=== PATIENT | female | born 1930 | race Caucasian/White ===

== ENCOUNTER 2016-12-26 09:10 | Emergency (ER) | payer MEDICARE, BC ==
[~2016-12-26] VITALS: Ht 152.4 cm; Wt 51.0 kg
[2016-12-26 09:16] VITALS: BP 133/62; PULSE 80; RESP 16; TEMP 99.4; O2SAT 100
[2016-12-26] MEDS ORDERED: OMEP20TA PO (09:36)
[2016-12-26] MEDS ORDERED: LOSA100T PO (09:36)
[2016-12-26] MEDS ORDERED: ARIC10TA2 PO (09:36)
[2016-12-26] MEDS ORDERED: ACET500T13 PO (09:36)
[2016-12-26] MEDS ORDERED: VITA250C3 CHEW (09:36)
[2016-12-26] MEDS ORDERED: ATOR40TA16 PO (09:36)
[2016-12-26] MEDS ORDERED: CALCTAB19 PO (09:36)
[2016-12-26] MEDS ORDERED: METF500T PO (09:36)
[2016-12-26] MEDS ORDERED: DOCU1CAP21 PO (09:36)
[2016-12-26] MEDS ORDERED: CRANCAP2 PO (09:36)
--- NOTE | 2016-12-26 09:36 | PD ---
HPI . Right hip pain Chief Complaint: Fall Time Seen by Provider: 09:26 Travel History International Travel<30 days: No Contact w/Intl Traveler<30days: No Traveled to known affect area: No History of Present Illness HPI The patient presents to us following a trip and fall at an assisted living facility presentation. She did strike her head. She had no loss of consciousness. She has not had any symptoms of a head injury such as altered mental status, blurred vision, vomiting. She takes an aspirin a day but no anticoagulants. Her chief complaint is actually right hip pain. Patient reports a previous fracture in the right hip status post pinning. She is able to walk on her hip with some pain. The pain is rated at 10/10. She has also been noted to have contusions to her left elbow and left hand. She has not complained of pain in these locations. [facility] Social History Tobacco Use: No Allergies-Medications (Allergen,Severity, Reaction): Coded Allergies: Sulfa (Verified Allergy, Unknown, 12/26/16) Reported Meds & Prescriptions Reported Meds & Active Scripts Active Reported APAP Extra Strength (Acetaminophen) 500 Mg Tab 500 Mg PO Q4-6H PRN Colace Clear (Docusate Sodium) 50 Mg Cap 50 Mg PO DAILY Vitamin C (Ascorbic Acid) 250 Mg Chew 500 Mg CHEW BID Omeprazole 20 Mg Tab 20 Mg PO DAILY Metformin (Metformin HCl) 500 Mg Tab 500 Mg PO BIDPC With meals Losartan (Losartan Potassium) 100 Mg Tab 100 Mg PO DAILY Aricept (Donepezil HCl) 10 Mg Tablet 10 Mg PO HS Cranberry Urinary Comfort (Vitamins C & E) 1 Cap 1 Cap PO DAILY Calcium 600+D 200 (Calcium Carbonate-Vitamin D) 600-200 Mg-Unit Tab 1 Tab PO DAILY Atorvastatin (Atorvastatin Calcium) 40 Mg Tab 40 Mg PO HS Review of Systems Except as stated in HPI: all other systems reviewed are Neg Eyes: No: Blurred Vision HENT: No: Headaches, Vertigo, Lightheadedness Gastrointestinal: No: Nausea Musculoskeletal: Positive: Arthralgias Skin: Positive Lumps, Positive Change in Pigmentation (bruising) Physical Exam Narrative GENERAL: Awake and alert and in no acute distress. SKIN: Warm and dry. HEAD: 2 palpable contusions in her scalp. EYES: Pupils equal and round. Extraocular movements are intact. NECK: Trachea midline. Neck is nontender. Full range of motion without pain. CARDIOVASCULAR: Regular rate and rhythm. RESPIRATORY: No accessory muscle use. MUSCULOSKELETAL: Hematoma on the left elbow. She is able to completely extend the left elbow and does not have significant pain. She also has a contusion on her left hand. She has no pain with use of her hand. She is tender over the right greater trochanter and resists logrolling of her right hip. There is no shortening or malrotation. She is distally neurovascularly intact. NEUROLOGICAL: Awake and alert. No obvious cranial nerve deficits. Motor grossly within normal limits. Normal speech. PSYCHIATRIC: Appropriate mood and affect; insight and judgment normal. Data Data Last Documented VS Vital Signs Date Time Temp Pulse Resp B/P Pulse Ox O2 Delivery O2 Flow Rate FiO2 12/26/16 10:15 68 16 150/67 98 Room Air 12/26/16 09:[address] Brain W/O Iv Contrast(Rout) (12/26/16 09:26) Elbow, Complete (4 Vws) (12/26/16 09:26) Hand, Complete ([id number]) (12/26/16 09:26) Hip, Uni(Ap&Lat) W Ap Pelvis (12/26/16 09:26) MDM Medical Decision Making Medical Screen Exam Complete: Yes Emergency Medical Condition: Yes Differential Diagnosis My differential diagnosis of head trauma includes but is not limited to scalp contusion, concussion, intracerebral hemorrhage. Differential diagnosis of extremity trauma includes but is not limited to fracture, sprain or strain, dislocation, contusion Narrative Course Patient presents for evaluation of injury sustained in a fall. I have ordered a CT of her head and plain films of her left elbow, left hand and right hip. I don't suspect that I will find anything wrong with her head on the left elbow or left hand. However, she may have sustained a right hip injury. Last Impressions Hip and Pelvis X-Ray 12/26/16925 Signed Impressions: Service Date/Time: Monday, December 26, 2016 10:02 - CONCLUSION: 1. Remote fracture right femoral neck with residual foreshortening. No acute fractures identified. Elroy Arrington MD Head CT 12/26/16925 Signed Impressions: Service Date/Time: Monday, December 26, 2016 09:36 - CONCLUSION: Negative for acute process. Nathan Porter MD FACR Hand X-Ray 12/26/16925 Signed Impressions: Service Date/Time: Monday, December 26, 2016 09:46 - CONCLUSION: 1. Remote fractures at the left wrist and hand as above. Moderate osteoarthritis. Osteopenia. No acute fracture identified. Elroy Arrington MD Elbow X-Ray 12/26/16925 Signed Impressions: Service Date/Time: Monday, December 26, 2016 09:55 - CONCLUSION: 1. No acute fracture identified. Osteopenia. Mild degenerative change at the left elbow. Elroy Arrington MD The plain films were all independently viewed by me. This patient has no evidence of an acute significant injury. Emergency Department evaluation reveals no emergency medical condition. The patient is stable for discharge to home. Diagnosis Primary Impression: Fall Qualified Code: W19.XXXA - Fall, initial encounter Additional Impressions: Scalp contusion Left elbow contusion Contusion of left hand Qualified Code: S60.222A - Contusion of left hand, initial encounter Right hip pain Patient Instructions: Contusion in Adults (DC), General Instructions Disposition: 01 DISCHARGE HOME Condition: Stable Namrata Ventura MD Dec 26, 2016 09:36
--- NOTE | 2016-12-26 10:02 | RADRPT ---
EXAM DATE/TIME: 12/26/2016 09:36 [facility] COMPARISON: No previous studies available for comparison. INDICATIONS : Trauma. Fell and hit head. RADIATION DOSE: 60.25 CTDIvol (mGy) MEDICAL HISTORY : None SURGICAL HISTORY : None. ENCOUNTER: Initial ACUITY: 1 day PAIN SCALE: 0/10 LOCATION: cranial TECHNIQUE: Multiple contiguous axial images were obtained of the head. Using automated exposure control and adj ustment of the mA and/or kV according to patient size, radiation dose was kept as low as reasonably a chievable to obtain optimal diagnostic quality images. DICOM format image data is available electro nically for review and comparison. FINDINGS: CEREBRUM: The ventricles are normal for age. No evidence of midline shift, mass lesion, hemorrhage or acute in farction. No extra-axial fluid collections are seen. POSTERIOR FOSSA: The cerebellum and brainstem are intact. The 4th ventricle is midline. The cerebellopontine angle i s unremarkable. EXTRACRANIAL: The visualized portion of the orbits is intact. SKULL: The calvaria is intact. No evidence of skull fracture. CONCLUSION: Negative for acute process. Nathan Porter MD FACR on December 26, 2016 at 9:53 Board Certified Radiologist. This report was verified electronically.
[2016-12-26 10:15] VITALS: BP 150/67; PULSE 68; RESP 16; O2SAT 98
--- NOTE | 2016-12-26 10:41 | RADRPT ---
EXAM DATE/TIME: 12/26/2016 09:46 [facility] COMPARISON: No previous studies available for comparison. INDICATIONS : Left hand pain after fall. MEDICAL HISTORY : None. SURGICAL HISTORY : None. ENCOUNTER: Initial ACUITY: 1 day PAIN SCORE: 6/10 LOCATION: Left posterior hand FINDINGS: There is a remote healed fracture of the distal radius with foreshortening. Remote ulnar styloid frac ture also noted. There is also an old distal fifth metacarpal fracture with healing. Bones are diffus maurisio osteopenic. No acute fracture or dislocation is identified. There is moderate osteoarthritis of t he left wrist. CONCLUSION: 1. Remote fractures at the left wrist and hand as above. Moderate osteoarthritis. Osteopenia. No acut e fracture identified. Elroy Arrington MD on December 26, 2016 at 10:36 Board Certified Radiologist. This report was verified electronically.
--- NOTE | 2016-12-26 10:42 | RADRPT ---
EXAM DATE/TIME: 12/26/2016 09:55 [facility] COMPARISON: No previous studies available for comparison. INDICATIONS : Left elbow pain after fall MEDICAL HISTORY : None. SURGICAL HISTORY : None. ENCOUNTER: Initial ACUITY: 1 day PAIN SCORE: 0/10 LOCATION: Left posterior elbow FINDINGS: Multiple view examination of the left elbow demonstrates no soft tissue swelling, joint effusion, or fracture. The osseous structures are in normal alignment. Bony mineralization is decreased. CONCLUSION: 1. No acute fracture identified. Osteopenia. Mild degenerative change at the left elbow. Elroy Arrington MD on December 26, 2016 at 10:38 Board Certified Radiologist. This report was verified electronically.
--- NOTE | 2016-12-26 10:43 | RADRPT ---
EXAM DATE/TIME: 12/26/2016 10:02 [facility] COMPARISON: No previous studies available for comparison. INDICATIONS : Right hip pain after fall MEDICAL HISTORY : None. SURGICAL HISTORY : Appendectomy. Hysterectomy. Right hip hardware placement ENCOUNTER: Initial ACUITY: 1 day PAIN SCORE: 10/10 LOCATION: Right hip FINDINGS: There is a remote femoral neck fracture status post triple lag screw fixation. There is some foreshor tening. No new fractures identified. There is mild osteoarthritis of the hips. Bones are diffusely os teopenic. CONCLUSION: 1. Remote fracture right femoral neck with residual foreshortening. No acute fractures identified. Elroy Arrington MD on December 26, 2016 at 10:40 Board Certified Radiologist. This report was verified electronically.
== END 2016-12-26 11:16 | disposition home or self-care (01) ==
LOC: PHED 09:10
DX: S00.03XA Contusion of scalp, initial encounter (principal); S50.02XA Contusion of left elbow, initial encounter; S60.222A Contusion of left hand, initial encounter; M25.551 Pain in right hip; W01.0XXA Fall on same level from slipping, tripping and stumbling without subsequent striking against object, initial encounter; Y92.129 Unspecified place in nursing home as the place of occurrence of the external cause
CPT/HCPCS: 70450; 73080; 73130; 73502

== ENCOUNTER 2016-12-30 15:22 | Inpatient (IN) | payer MEDICARE, BC ==
[~2016-12-30] VITALS: Ht 152.4 cm; Wt 45.7 kg
[~2016-12-30 15:22] MED LIST: ACET500T13 PO; ARIC10TA2 PO; ATOR40TA16 PO; CALCTAB19 PO; CRANCAP2 PO; DOCU1CAP21 PO; LOSA100T PO; METF500T PO; OMEP20TA PO; VITA250C3 CHEW
[2016-12-30 15:33] VITALS: BP 107/46; PULSE 96; RESP 18; TEMP 98.2; O2SAT 98
--- NOTE | 2016-12-30 15:42 | PD ---
HPI Chief Complaint: VOMITING Time Seen by Provider: 15:42 Travel History International Travel<30 days: No Contact w/Intl Traveler<30days: No History of Present Illness HPI 86-year-old female with a history of hypertension, hyperlipidemia, diabetes, dementia is brought to the emergency department by EMS from versus a living facility for evaluation of left flank pain, nausea and vomiting that began shortly after lunch. Per EMS report the patient was alert and oriented 4 and vomiting mostly saliva. She was given Zofran on route. The patient is a poor historian and when I ask her questions her answer is frequently "I don't know." She is awake, alert and oriented to person and place. She is unsure of the time or the situation. No other complaints. PFSH Past Medical History High Cholesterol: Yes Diabetes: Yes Diminished Hearing: Yes Hypertension: Yes Past Surgical History Appendectomy: Yes Cholecystectomy: Yes Hysterectomy: Yes Tonsillectomy: Yes Social History Alcohol Use: No Tobacco Use: No Substance Use: No Allergies-Medications (Allergen,Severity, Reaction): Coded Allergies: Sulfa (Verified Allergy, Unknown, 12/30/16) Reported Meds & Prescriptions Reported Meds & Active Scripts Active Reported Nitrofurantoin Monohydrate Macrocrystals (Nitrofurantoin Monoh/Nitrofur Macro) 100 Mg Cap 100 Mg PO BID Sm Gas Relief (Simethicone) 80 Mg Chw 80 Mg CHEW QID PRN Eye Health Adult 50+ Softgel (Antiox #11/Om3/Dha/Epa/Lut/Colby) 1 Each Capsule 1 Cap PO DAILY C 500 (Ascorbic Acid) 500 Mg Tab 500 Mg PO BID Methenamine Hippurate 1 Gm Tab 500 Mg PO BID Cranberry (Cranberry (Vaccinium Macrocarpon)) 500 Mg Cap 500 Mg PO DAILY Aspirin EC (Aspirin) 81 Mg Tabdr 81 Mg PO HS APAP Extra Strength (Acetaminophen) 500 Mg Tab 500 Mg PO Q6HR PRN Colace Clear (Docusate Sodium) 50 Mg Cap 50 Mg PO DAILY PRN Omeprazole 20 Mg Tab 20 Mg PO DAILY Losartan (Losartan Potassium) 100 Mg Tab 100 Mg PO DAILY Aricept (Donepezil HCl) 10 Mg Tablet 10 Mg PO HS Calcium 600+D 200 (Calcium Carbonate-Vitamin D) 600-200 Mg-Unit Tab 1 Tab PO DAILY Atorvastatin (Atorvastatin Calcium) 40 Mg Tab 40 Mg PO HS Review of Systems ROS Limitations: Altered Mental Status, Poor Historian Except as stated in HPI: all other systems reviewed are Neg Physical Exam Exam Limitations: Altered Mental Status, Poor Historian Narrative GENERAL: Well-nourished and well-developed female patient in no acute distress. SKIN: Warm and dry. HEAD: Normocephalic and atraumatic. EYES: No injection, drainage, or hyphema noted. PERRLA. EOMI. ENT: No nasal drainage noted. Oropharynx is clear. NECK: Supple and the trachea is midline. CARDIOVASCULAR: Regular rate and rhythm. RESPIRATORY: Breath sounds are equal bilaterally with no accessory muscle use, wheezing, rhonchi, or crackles. GASTROINTESTINAL: Abdomen is soft, non-tender, and nondistended. MUSCULOSKELETAL: No obvious deformities, swelling, cyanosis, or ecchymosis is present throughout the upper and lower extremities. Patient has full range of motion without any signs of neurovascular compromise. BACK: Left flank tenderness to palpation. NEUROLOGICAL: Awake, alert, and oriented to person and place. Unsure of time or situation. Normal speech and gait. Cranial nerves are grossly intact. Data Data Last Documented VS Vital Signs Date Time Temp Pulse Resp B/P Pulse Ox O2 Delivery O2 Flow Rate FiO2 12/30/16 17:54 88 18 113/48 94 Room Air 12/30/16 15:33 98.2 Orders Complete Blood Count With Diff (12/30/16 15:39) Comprehensive Metabolic Panel (12/30/16 15:39) Lipase (12/30/16 15:39) Prothrombin Time / Inr (Pt) (12/30/16 15:39) Act Partial Throm Time (Ptt) (12/30/16 15:39) Urinalysis - C+S If Indicated (12/30/16 15:39) Ct Abd/Pel W Iv Contrast(Rout) (12/30/16 15:39) Iv Access Insert/Monitor (12/30/16 15:39) Ecg Monitoring (12/30/16 15:39) Oximetry (12/30/16 15:39) Sodium Chloride 0.9% Flush (Ns Flush) (12/30/16 15:45) Sodium Chlorid 0.9% 500 Ml Inj (Ns 500 M (12/30/16 15:45) Chest, Single Ap (12/30/16 15:39) Ct Brain W/O Iv Contrast(Rout) (12/30/16 15:41) Lactic Acid Sepsis Protocol (12/30/16 15:44) Ondansetron Inj (Zofran Inj) (12/30/16 16:15) Urine Culture (12/30/16 16:27) Sodium Chlor 0.9% 1000 Ml Inj (Ns 1000 M (12/30/16 17:27) Piperacil-Tazo 4.5 Gm Premix (Zosyn 4.5 (12/30/16 17:30) Iohexol 350 Inj (Omnipaque 350 Inj) (12/30/16 18:17) Labs Laboratory Tests Test 12/30/16 12/30/16 12/30/16 16:15 16:27 18:33 White Blood Count 2.8 TH/MM3 Red Blood Count 3.97 MIL/MM3 Hemoglobin 10.2 GM/DL Hematocrit 31.5 % Mean Corpuscular Volume 79.3 FL Mean Corpuscular Hemoglobin 25.8 PG Mean Corpuscular Hemoglobin 32.6 % Concent Red Cell Distribution Width 15.0 % Platelet Count 262 TH/MM3 Mean Platelet Volume 8.2 FL Neutrophils (%) (Auto) % Lymphocytes (%) (Auto) % Monocytes (%) (Auto) % Eosinophils (%) (Auto) % Basophils (%) (Auto) % Neutrophils # (Auto) TH/MM3 Lymphocytes # (Auto) TH/MM3 Monocytes # (Auto) TH/MM3 Eosinophils # (Auto) TH/MM3 Basophils # (Auto) TH/MM3 CBC Comment AUTO DIFF Differential Total Cells 100 Counted Neutrophils % (Manual) 53 % Band Neutrophils % 41 % Lymphocytes % 5 % Eosinophils % 1 % Neutrophils # (Manual) 2.6 TH/MM3 Differential Comment FINAL DIFF MANUAL Dohle Bodies PRESENT Platelet Estimate NORMAL Platelet Morphology Comment NORMAL Ovalocytes 1+ Prothrombin Time 11.1 SEC Prothromb Time International 1.0 RATIO Ratio Activated Partial 22.9 SEC Thromboplast Time Sodium Level 135 MEQ/L Potassium Level 3.2 MEQ/L Chloride Level 99 MEQ/L Carbon Dioxide Level 23.4 MEQ/L Anion Gap 13 MEQ/L Blood Urea Nitrogen 14 MG/DL Creatinine 1.06 MG/DL Estimat Glomerular Filtration 49 ML/MIN Rate Random Glucose 180 MG/DL Lactic Acid Level 4.6 mmol/L 2.3 mmol/L Calcium Level 8.8 MG/DL Total Bilirubin 0.5 MG/DL Aspartate Amino Transf 12 U/L (AST/SGOT) Alanine Aminotransferase 20 U/L (ALT/SGPT) Alkaline Phosphatase 70 U/L Total Protein 6.9 GM/DL Albumin 3.5 GM/DL Lipase 327 U/L Urine Color YELLOW Urine Turbidity HAZY Urine pH 6.0 Urine Specific [place] 1.012 Urine Protein TRACE mg/dL Urine Glucose (UA) NEG mg/dL Urine Ketones NEG mg/dL Urine Occult Blood MOD Urine Nitrite NEG Urine Bilirubin NEG Urine Urobilinogen LESS THAN 2.0 MG/DL Urine Leukocyte Esterase LARGE Urine RBC 47 /hpf Urine WBC 77 /hpf Urine WBC Clumps OCC Urine Squamous Epithelial 1 /hpf Cells Urine Bacteria OCC /hpf Microscopic Urinalysis Comment CULTURE INDICATED MDM Medical Decision Making Medical Screen Exam Complete: Yes Emergency Medical Condition: Yes Differential Diagnosis Kidney stone versus diverticulitis versus colitis versus pancreatitis versus dehydration versus electrolyte abnormality versus intracranial hemorrhage Narrative Course 86-year-old female is brought to the emergency department from her assisted living facility for evaluation of nausea, vomiting and left flank pain. Patient is afebrile, she is tachycardic with a heart rate 96 bpm. Otherwise vital signs within normal limits. Abdominal examination is essentially benign with the exception of left flank tenderness. IV access is obtained, labs have been drawn and sent. Patient is placed on cardiac telemetry and pulse oximetry monitoring. CBC shows suppressed white blood count of 2.8, anemia with hemoglobin 10.2, hematocrit 31.5. 41% band neutrophils. CMP shows mild hypokalemia with potassium 3.2 and renal insufficiency with a creatinine of 1.06, GFR 49. Lactic acid is 4.6. 2 hour repeat lactic acid is 2.3. Coags are unremarkable. Chest x-ray is negative. Head CT is negative for any acute abnormalities. CT of the abdomen and pelvis is negative for any abnormalities. Patient was administered IV Zosyn empirically after seeing lactic acidosis. Patient will be admitted to medicine service for IV fluids and antibiotics for sepsis and urinary tract infection. I discussed the case with my attending physician Dr. Pope who is aware of the patients history, physical examination findings, and treatment plan. Physician Communication Physician Communication I spoke with Dr. Yusuf [facility] who agrees to admit the patient to her service. Diagnosis Primary Impression: Sepsis Qualified Code: A41.9 - Sepsis, due to unspecified organism Additional Impression: UTI (urinary tract infection) Qualified Code: N39.0 - Urinary tract infection with hematuria, site unspecified Admitting Information Admitting Physician Requests: Admit Shanda Graff Dec 30, 2016 15:42
[2016-12-30] MEDS ORDERED: SODIUM CHLORIDE 0.9% FLUSH 10 ML FLUSH IV FLUSH PRN ×2 (15:45→20:15)
[2016-12-30] MEDS ORDERED: SODIUM CHLORID 0.9% 500 ML INJ 500 ML IV ONE (15:45)
[2016-12-30 16:07] VITALS: O2SAT 100
[2016-12-30] MEDS ORDERED: ASPI81TA11 PO (16:15)
[2016-12-30] MEDS ORDERED: ONDANSETRON HCL 4 MG/2 ML VIAL IV PUSH ONE (16:15)
[2016-12-30] MEDS ORDERED: METH1TAB2 PO (16:21)
[2016-12-30] MEDS ORDERED: CRAN500C2 PO (16:21)
[2016-12-30] MEDS ORDERED: C 50TAB PO (16:26)
[2016-12-30] MEDS ORDERED: ANTI1CAP PO (16:26)
[2016-12-30] MEDS ORDERED: [UNRECOGNIZED DRUG - OTHER] CHEW (16:31)
[2016-12-30] MEDS ORDERED: NITR100C4 PO (16:32)
--- NOTE | 2016-12-30 16:48 | RADRPT ---
EXAM DATE/TIME: 12/30/2016 16:18 [facility] COMPARISON: No previous studies available for comparison. INDICATIONS : Chest and abdominal pain, vomiting, evaluate for free air, fell 3 days ago MEDICAL HISTORY : None. SURGICAL HISTORY : Appendectomy. Hysterectomy. hip replaced ENCOUNTER: Initial ACUITY: 3 days PAIN SCORE: Non-responsive. LOCATION: Bilateral chest FINDINGS: Diffuse interstitial prominence without significant focal pleural-parenchymal opacities. No significa nt pneumothorax. Cardiomediastinal contours are within normal limits. Left humeral resection. Bony th orax is otherwise intact. No gross free air. CONCLUSION: 1. No gross free air as questioned. 2. No acute cardiopulmonary disease. Bhavin Narvaez MD on December 30, 2016 at 16:44 Board Certified Radiologist. This report was verified electronically.
[2016-12-30 16:56] LABS: HEMATOCRIT 31.5 % (35.0-46.0); MEAN CELL VOLUME 79.3 FL (80.0-100.0); MEAN CORPUSCULAR HEMOGLOBIN 25.8 PG (27.0-34.0); MEAN CORPUSCULAR HGB CONC 32.6 % (32.0-36.0); PLATELET COUNT 262 TH/MM3 (150-450); RED BLOOD COUNT 3.97 MIL/MM3 (4.00-5.30); WHITE BLOOD COUNT 2.8 TH/MM3 (4.0-11.0)
[2016-12-30 17:06] LABS: APTT (PATIENT) 22.9 SEC (24.3-30.1); PROTHROMBIN TIME - PATIENT 11.1 SEC (9.8-11.6)
[2016-12-30 17:12] LABS: BACTERIA, URINE OCC /hpf; BLOOD, URINE MOD (NEG); COMMENT (UR) CULTURE INDICATED; CULTURE IF INDICATED CULTURE INDICATED; GLUCOSE,URINE NEG (NEG); KETONE, URINE NEG (NEG); NITRITE,URINE NEG (NEG); SQUAMOUS EPITHELIAL CELL URINE 1 /hpf (0-5); URINE COLOR YELLOW (YELLW/STRAW)
[2016-12-30 17:13] LABS: ALT (GPT) 20 U/L (10-53); ANION GAP 13 MEQ/L (5-15); AST (GOT) 12 U/L (15-37); BICARBONATE 23.4 MEQ/L (21.0-32.0); BLOOD UREA NITROGEN 14 MG/DL (7-18); CHLORIDE 99 MEQ/L (98-107); GLOMERULAR FILTRATION RATE 49 ML/MIN (>89); HEMO FLAGS AUTO DIFF; POTASSIUM 3.2 MEQ/L (3.5-5.1); SODIUM (NA) 135 MEQ/L (136-145)
[2016-12-30 17:15] LABS: ALKALINE PHOSPHATASE 70 U/L (45-117); TOTAL BILIRUBIN ADULT 0.5 MG/DL (0.2-1.0)
[2016-12-30] MEDS ORDERED: SODIUM CHLOR 0.9% 1000 ML INJ 1,000 ML IV SCH (17:27)
[2016-12-30] MEDS ORDERED: PIPERACIL-TAZO 4.5 GM PREMIX 100 ML IV ONE (17:30)
[2016-12-30 17:48] LABS: BANDS 41 % (0-6); EOSINOPHILS 1 % (0-4); NEUTROPHIL # MANUAL DIFF 2.6 TH/MM3 (1.8-7.7); POLYS (SEG NEUTROPHILS) 53 % (16-70); WBC DIFF SAMPLE 100
[2016-12-30 17:49] LABS: OVALOCYTES 1+ (NORMAL)
[2016-12-30 17:50] LABS: DOHLE BODIES PRESENT (NONE SEEN); PLATELET ESTIMATE SMEAR NORMAL (NORMAL); PLATELET MORPHOLOGY NORMAL (NORMAL); SCAN/DIFF FINAL DIFF MANUAL
[2016-12-30 17:54] VITALS: BP 113/48; PULSE 88; RESP 18; O2SAT 94
[2016-12-30] MEDS ORDERED: IOHEXOL 350 MG/ML 10 ML VIAL (for RAD DIAG) IV ONE (18:17)
--- NOTE | 2016-12-30 18:37 | RADRPT ---
EXAM DATE/TIME: 12/30/2016 18:07 [facility] COMPARISON: CT BRAIN W/O CONTRAST, December 26, 2016, 9:36. INDICATIONS : Altered mental status. RADIATION DOSE: 56.35 CTDIvol (mGy) MEDICAL HISTORY : Hypertension. SURGICAL HISTORY : Cholecystectomy. Appendectomy. Hysterectomy. ENCOUNTER: Initial ACUITY: 1 day PAIN SCALE: 0/10 LOCATION: Cranial TECHNIQUE: Multiple contiguous axial images were obtained of the head. Using automated exposure control and adjustment of the mA and/or kV according to patient size, radiation dose was kept as low as reasonably achievable to obtain optimal diagnostic quality images. DICOM format image data is av ailable electronically for review and comparison. FINDINGS: The ventricles and cortical sulci are widened. There is decreased density seen througho ut the periventricular white matter. There is evidence of prior infarction at the left anterior limb of the internal capsule. There are calcifications seen at the medial aspects of the basal ganglia bilat erally. No acute areas of hemorrhage or mass effect are seen. Extra-axial fluid collections are not seen. There are old lacunar infarcts seen at the right periventricular white matter. CONCLUSION: 1. No acute abnormality is seen. 2. Age related atrophy. 3. Suspected small vessel ischemic change throughout the white matter. 4. 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 Luis Chase MD on December 30, 2016 at 18:25 Board Certified Radiologist. This report was verified electronically.
[2016-12-30 18:44] LABS: LACTIC ACID GHOST NOT REPORTABLE
--- NOTE | 2016-12-30 19:19 | RADRPT ---
EXAM DATE/TIME: 12/30/2016 18:06 [facility] COMPARISON: HIP RIGHT (AP&LAT 2/3VWS) W AP PELVIS, December 26, 2016, 10:02. CHEST SINGLE AP, December 30, 2016, 16:18. INDICATIONS : Patient with nausea and vomiting. IV CONTRAST: 100 cc Omnipaque 350 (iohexol) IV ORAL CONTRAST: No oral contrast ingested. RADIATION DOSE: 9.96 CTDIvol (mGy) MEDICAL HISTORY : Hypertension. SURGICAL HISTORY : Appendectomy. Cholecystectomy. Hysterectomy. ENCOUNTER: Initial ACUITY: 1 day PAIN SCALE: 5/10 LOCATION: Left flank TECHNIQUE: Volumetric scanning of the abdomen and pelvis was performed. Using automated exposure control and ad justment of the mA and/or kV according to patient size, radiation dose was kept as low as reasonably achievable to obtain optimal diagnostic quality images. DICOM format image data is available electro [facility] for review and comparison. FINDINGS: The patient is status post cholecystectomy with clips in the right upper quadrant. There is some min imal prominence of the intrahepatic biliary ducts. The common bile duct is within normal limits. The mild dilatation of the intrahepatic biliary ducts may be secondary to a reservoir phenomenon followi ng cholecystectomy. Atherosclerotic calcifications are seen throughout the arterial system. There a re prominent calcifications seen at the michela hepatis region which may be related to a calcified hepa tic artery. The portal vein is patent. No focal hepatic lesions are seen. The spleen, pancreas, adrenal glands and kidneys are grossly normal. The bowel is unremarkable. The patient has surgical fasteners seen at the anterior abdominal wall. The patient appears to be statu s post hysterectomy. No pelvic mass is seen. The patient has a prominent levoscoliosis of the lumbar spine. There is degenerative change througho ut the lumbar spine. There are some compressive changes at the L1 vertebral body. The age of these changes is not known. There are three screws seen through the right proximal femur. There is increased density seen at the posterior lung bases likely related to atelectasis versus some mild underlying consolidation. CONCLUSION: 1. An acute abnormality is not clearly identified. 2. Atherosclerotic calcifications seen throughout the arterial system. An aneurysm is not seen. 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 The portal vein is patent. 3. Prominent levoscoliosis of the lumbar spine. In addition there is compression deformity identifie d at L1. The age of this deformity is not known. Luis Chase MD on December 30, 2016 at 18:58 Board Certified Radiologist. This report was verified electronically.
[2016-12-30] MEDS ORDERED: DEXTROSE 50% IN WATER 50 ML VIAL(D50) IV PRN (20:15)
[2016-12-30] MEDS ORDERED: GLUCAGON 1 MG/ML VIAL OTHER PRN (20:15)
[2016-12-30] MEDS ORDERED: NALOXONE HCL 0.4 MG/ML AMP IV PRN (20:15)
[2016-12-30] MEDS ORDERED: LEVOFLOXACIN 750 MG PREMIX INJ 150 ML IV SCH (21:00)
[2016-12-30] MEDS ORDERED: CHLORHEXIDINE GLUCONATE 2 % 1 PACK (2 CLOTHS) TOP PRN (21:30)
[2016-12-30] MEDS ORDERED: MISCELLANEOUS NURSING INFORMATION XX SCH (21:30)
[2016-12-30 22:00] VITALS: BP 132/63; PULSE 83; RESP 24; TEMP 99.8
[2016-12-30] MEDS: INSULIN ASPART SUPPLEMENTAL SCALE SQ SCH (22:05)
[2016-12-30] MEDS: SODIUM CHLORIDE 0.9% FLUSH 10 ML FLUSH IV FLUSH SCH (22:06)
[2016-12-31] VITALS (18 sets, daily range): BP systolic 88–131; BP diastolic 46–60; PULSE 68–90; RESP 15–34; TEMP 97.4–99.6; O2SAT 93–99
--- NOTE | 2016-12-31 00:44 | HHI.HP ---
[facility] Erasmo Clay MD Admission Diagnosis Sepsis, UTI, Bandemia Diagnoses: Chief Complaint: flank pain, nausea, and vomiting Travel History International Travel<30 Days: No Contact w/Intl Traveler <30 Da: No Traveled to Known Affected Are: No History of Present Illness Written by Joyce Villatoro, acting as scribe for Dr. Yusuf on 12/31/16 at 00:51. The patient reports a fall at home on Thursday that occurred while she was walking to the bathroom and ran into a chair. States she hit the back/top of the left side of her head. She says she came in on Thursday evening. States she was at [facility] in the [facility] when she fell (records indicate she is at [facility] in [place]). States able to walk with walker following fall. She was released from ER back to [facility]. She is unable to report why she returned to the hospital. She has dementia. Denies sob, unilateral weakness, n/v/d, reports gas only, unsure about black or red colored stool. Denies dysuria. Reports neck is painful following the fall. Unsure if she was having fevers. States "I didn't feel good" but is unable to describe this any further. ER documentation from Shanda Graff PA-C on 12/30/16 indicates that the patient was sent to the emergency room by the assisted living facility for evaluation of left flank pain, nausea, and vomiting that began after lunch. CT of abdomen and pelvis performed in the ED cannot clearly identify an acute abnormality. Lactic acid initially 4.6 and 2.3 on repeat. Review of Systems Except as stated in HPI: all other systems reviewed are Neg Past Family Social History Past Medical History Patient is a poor historian, the following is from [facility] documentation sent with the patient Diabetes Mellitus, type 2 Hypertension Hyperlipidemia GERD Dementia Right hip fracture Patient denies CAD, CHF, atrial fibrillation, COPD/asthma/emphysema - couldn't remember other diseases Past Surgical History Possible right hip fracture repair - per [facility] documentation . Reported Medications Reported Meds & Active Scripts Active Reported Nitrofurantoin Monohydrate Macrocrystals (Nitrofurantoin Monoh/Nitrofur Macro) 100 Mg Cap 100 Mg PO BID Sm Gas Relief (Simethicone) 80 Mg Chw 80 Mg CHEW QID PRN Eye Health Adult 50+ Softgel (Antiox #11/Om3/Dha/Epa/Lut/Colby) 1 Each Capsule 1 Cap PO DAILY C 500 (Ascorbic Acid) 500 Mg Tab 500 Mg PO BID Methenamine Hippurate 1 Gm Tab 500 Mg PO BID Cranberry (Cranberry (Vaccinium Macrocarpon)) 500 Mg Cap 500 Mg PO DAILY Aspirin EC (Aspirin) 81 Mg Tabdr 81 Mg PO HS APAP Extra Strength (Acetaminophen) 500 Mg Tab 500 Mg PO Q6HR PRN Colace Clear (Docusate Sodium) 50 Mg Cap 50 Mg PO DAILY PRN Omeprazole 20 Mg Tab 20 Mg PO DAILY Losartan (Losartan Potassium) 100 Mg Tab 100 Mg PO DAILY Aricept (Donepezil HCl) 10 Mg Tablet 10 Mg PO HS Calcium 600+D 200 (Calcium Carbonate-Vitamin D) 600-200 Mg-Unit Tab 1 Tab PO DAILY Atorvastatin (Atorvastatin Calcium) 40 Mg Tab 40 Mg PO HS . Allergies: Coded Allergies: Sulfa (Verified Allergy, Unknown, 12/30/16) Active Ordered Medications Current Medications Sodium Chloride 2 ml 2 ml UNSCH PRN IV FLUSH FLUSH AFTER USING IV ACCESS; Start 12/30/16 at 15:45; Stop 12/30/16 at 20:24; Status DC Sodium Chloride (NS 500 ml Inj) 500 ml @ 500 mls/hr ONCE ONCE IV Last administered on 12/30/16 16:04; Start 12/30/16 at 15:45; Stop 12/30/16 at 16:44 ; Status DC Ondansetron HCl 4 mg 4 mg ONCE ONCE IV PUSH Last administered on 12/30/16 16: 05; Start 12/30/16 at 16:15; Stop 12/30/16 at 16:16; Status DC Sodium Chloride 1,000 ml @ 1,000 mls/hr Q1H IV Last administered on 12/30/16 17:44; Start 12/30/16 at 17:27; Stop 12/30/16 at 18:26; Status DC Piperacillin Sod/ Tazobactam Sod (Zosyn 4.5 Gm Premix) 100 ml @ 200 mls/hr ONCE ONCE IV Last administered on 12/30/16 17:45; Start 12/30/16 at 17:30; Stop 12/30/16 at 17:59; Status DC Iohexol (Omnipaque 350 Inj) 100 ml STK-MED ONCE IV Last administered on 18:17; Start 12/30/16 at 18:17; Stop 12/30/16 at 18:18; Status DC Sodium Chloride (NS Flush) 2 ml UNSCH PRN IV FLUSH FLUSH AFTER USING IV ACCESS ; Start 12/30/16 at 20:15 Sodium Chloride (NS Flush) 2 ml BID IV FLUSH Last administered on 12/30/16 22: 06; Start 12/30/16 at 21:00 Naloxone HCl (Narcan Inj) 0.4 mg UNSCH PRN IV SEE LABEL COMMENTS; Start at 20:15 Dextrose (D50w (Vial) Inj) 50 ml UNSCH PRN IV HYPOGLYCEMIA-SEE COMMENTS; Start 12/30/16 at 20:15 Glucagon (Glucagon Inj) 1 mg UNSCH PRN OTHER HYPOGLYCEMIA-SEE COMMENTS; Start 12/30/16 at 20:15 Insulin Aspart 1 1 ACHS SLIDING SCALE SQ Last administered on 12/30/16 22:05 ; Start 12/30/16 at 21:00 Levofloxacin/ Dextrose (Levaquin 750 Mg Premix Inj) 150 ml @ 100 mls/hr Q24H IV Last administered on 12/30/16 21:16; Start 12/30/16 at 21:00 Miscellaneous Information 1 Q361D XX ; Start 12/30/16 at 21:30 Chlorhexidine Gluconate (Chlorhexidine 2% Cloth) 3 pack Taper DAILY@04 TOP ; Start 12/31/16 at 04:00; Stop 12/27/17 at 03:59 Chlorhexidine Gluconate (Chlorhexidine 2% Cloth) 3 pack UNSCH PRN TOP HYGIENIC CARE; Start 12/30/16 at 21:30 Family History Mother with diabetes mellitus . Social History Originally from [place]; moved to be closer to daughter who lives here Tobacco: denies Alcohol: denies . Physical Exam Vital Signs Vital Signs Date Time Temp Pulse Resp B/P Pulse Ox O2 Delivery O2 Flow Rate FiO2 12/30/16 22:00 99.8 83 24 132/63 6/27/17 22:00 83 12/30/16 17:54 88 18 113/48 94 Room Air 12/30/16 16:07 100 Room Air 12/30/16 16:05 18 12/30/16 15:33 98.2 96 18 107/46 98 Physical Exam GENERAL: This is an elderly female patient with some memory loss noted, in no apparent distress. SKIN: No rashes, ecchymoses or lesions. Cool and dry. Appears pale. HEAD: Atraumatic. Normocephalic. EYES: No scleral icterus. No injection or drainage. ENT: Nose without bleeding, purulent drainage. NECK: Trachea midline. No JVD or lymphadenopathy. CARDIOVASCULAR: Regular rate and rhythm without murmurs, gallops, or rubs. RESPIRATORY: Clear to auscultation. Breath sounds equal bilaterally. No wheezes , rales, or rhonchi. GASTROINTESTINAL: Abdomen soft, non-tender, nondistended. No guarding. MUSCULOSKELETAL: Extremities without clubbing, cyanosis, or edema. No calf tenderness. NEUROLOGICAL: Awake and alert with memory loss. Motor and sensory grossly within normal limits. Normal speech. . Laboratory Laboratory Tests Test 12/30/16 12/30/16 12/30/16 16:15 16:27 18:33 White Blood Count 2.8 Red Blood Count 3.97 Hemoglobin 10.2 Hematocrit 31.5 Mean Corpuscular Volume 79.3 Mean Corpuscular Hemoglobin 25.8 Mean Corpuscular Hemoglobin 32.6 Concent Red Cell Distribution Width 15.0 Platelet Count 262 Mean Platelet Volume 8.2 Neutrophils (%) (Auto) Lymphocytes (%) (Auto) Monocytes (%) (Auto) Eosinophils (%) (Auto) Basophils (%) (Auto) Neutrophils # (Auto) Lymphocytes # (Auto) Monocytes # (Auto) Eosinophils # (Auto) Basophils # (Auto) CBC Comment AUTO DIFF Differential Total Cells 100 Counted Neutrophils % (Manual) 53 Band Neutrophils % 41 Lymphocytes % 5 Eosinophils % 1 Neutrophils # (Manual) 2.6 Differential Comment FINAL DIFF MANUAL Dohle Bodies PRESENT Platelet Estimate NORMAL Platelet Morphology Comment NORMAL Ovalocytes 1+ Prothrombin Time 11.1 Prothromb Time International 1.0 Ratio Activated Partial 22.9 Thromboplast Time Sodium Level 135 Potassium Level 3.2 Chloride Level 99 Carbon Dioxide Level 23.4 Anion Gap 13 Blood Urea Nitrogen 14 Creatinine 1.06 Estimat Glomerular Filtration 49 Rate Random Glucose 180 Lactic Acid Level 4.6 2.3 Calcium Level 8.8 Total Bilirubin 0.5 Aspartate Amino Transf 12 (AST/SGOT) Alanine Aminotransferase 20 (ALT/SGPT) Alkaline Phosphatase 70 Total Protein 6.9 Albumin 3.5 Lipase 327 Urine Color YELLOW Urine Turbidity HAZY Urine pH 6.0 Urine Specific [place] 1.012 Urine Protein TRACE Urine Glucose (UA) NEG Urine Ketones NEG Urine Occult Blood MOD Urine Nitrite NEG Urine Bilirubin NEG Urine Urobilinogen LESS THAN 2.0 Urine Leukocyte Esterase LARGE Urine RBC 47 Urine WBC 77 Urine WBC Clumps OCC Urine Squamous Epithelial 1 Cells Urine Bacteria OCC Microscopic Urinalysis Comment CULTURE INDICATED Date/Time Procedure Status Source Growth 12/30/16 16:27 Urine Culture Received Urine Random Urine Pending Result Diagram: 12/30/16 1615 12/30/16 1615 Imaging Last Impressions Head CT 12/30/16 1541 Signed Impressions: Service Date/Time: Friday, December 30, 2016 18:07 - CONCLUSION: 1. No acute abnormality is seen. 2. Age related atrophy. 3. Suspected small vessel ischemic change throughout the white matter. 4. 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 Luis Chase MD Chest X-Ray 12/30/16 1539 Signed Impressions: Service Date/Time: Friday, December 30, 2016 16:18 - CONCLUSION: 1. No gross free air as questioned. 2. No acute cardiopulmonary disease. Bhavin Narvaez MD Abdomen/Pelvis CT 12/30/16 1539 Signed Impressions: Service Date/Time: Friday, December 30, 2016 18:06 - CONCLUSION: 1. An acute abnormality is not clearly identified. 2. Atherosclerotic calcifications seen throughout the arterial system. An aneurysm is not seen. 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 The portal vein is patent. 3. Prominent levoscoliosis of the lumbar spine. In addition there is compression deformity identified at L1. The age of this deformity is not known. Luis Chase MD . Assessment and Plan Assessment and Plan Sepsis secondary to UTI - Temperature 99.8 in ED with tachycardia and hypoxia with tachypnea - WBC low at 2.8 with elevation in band neutrophils (left shift)- recheck CBC in a.m. - Lactic acid initially 4.6 and 2.3 on repeat - will recheck in a.m. - Chest x-ray with no acute cardiopulmonary disease noted - UA suggestive of UTI - Levaquin 750 mg IV q24h - Await results of urine culture and adjust treatments as indicated - Closely monitor intake and output - Supplemental oxygen titrated to maintain oxygen saturation > 92% Type 2 DM - Accu-Cheks before meals and at bedtime with low-dose NovoLog sliding scale coverage - Hypoglycemia protocol - 2200 kcal ADA conservative carb diet - Monitor trends and blood glucose readings and adjust treatment as indicated Neck pain following fall with head impact - check CT cervical spine without contrast to evaluate for injury - Head CT no acute abnormality, age related atrophy, suspected small vessel ischemic change throughout the white matter, bilateral old lacunar infarcts Nausea and vomiting - Patient has had none since being admitted to the hospital from the ED - Zofran 4 mg IV q6h PRN n/v - We'll continue to monitor and treat as indicated Hypokalemia - Potassium 3.2 on admission - orally replaced - recheck in a.m. and treat as indicated DVT prophylaxis - Heparin 5000 units subq q12h . Discussed Condition With ER physician, patient, and RN . Physician Certification 2 Midnight Certification Type: Admission for Inpatient Services Order for Inpatient Services The services are ordered in accordance with Medicare regulations or non- Medicare payer requirements, as applicable. In the case of services not specified as inpatient-only, they are appropriately provided as inpatient services in accordance with the 2-midnight benchmark. Estimated LOS (days): 3 days is the estimated time the patient will need to remain in the hospital, assuming treatment plan goals are met and no additional complications. Post-Hospital Plan: Not yet determined Joyce Villatoro Dec 31, 2016 00:44
[2016-12-31] MEDS ORDERED: ONDANSETRON HCL 4 MG/2 ML VIAL IV PUSH PRN (03:15)
[2016-12-31] MEDS ORDERED: POTASSIUM CHLORIDE 10 MEQ CONTROLLED RELEASE TAB PO ONE (03:30)
[2016-12-31] MEDS: CHLORHEXIDINE GLUCONATE 2 % 1 PACK (2 CLOTHS) TOP SCH (03:45)
--- NOTE | 2016-12-31 05:06 | RADRPT ---
EXAM DATE/TIME: 12/31/2016 04:13 [facility] COMPARISON: No previous studies available for comparison. INDICATIONS : Neck pain from fall four days ago. RADIATION DOSE: 20.18 CTDIvol (mGy) MEDICAL HISTORY : None SURGICAL HISTORY : Tonsillectomy. ENCOUNTER: Initial ACUITY: 4 - 6 days PAIN SCALE: 5/10 LOCATION: neck TECHNIQUE: Volumetric scanning of the cervical spine was performed. Multiplanar reconstructions in the sagittal, coronal and oblique axial planes were performed. Using automated exposure control and adjustment o f the mA and/or kV according to patient size, radiation dose was kept as low as reasonably achievable to obtain optimal diagnostic quality images. DICOM format image data is available electronically f or review and comparison. FINDINGS: There is normal alignment of the vertebral bodies of the lumbar spine preservation of vertebral body height. There is advanced discogenic degenerative changes throughout the cervical spine with marked narrowing of the interspaces from C3-C7 and prominent anterior and posterior osteophytes. There is a lso advanced hypertrophic changes in the facet joints throughout the cervical spine. The atlantoaxia l articulation is intact. No fracture is seen. There is moderate severity neural foraminal stenosis bilaterally at C3-4, severe bilaterally at C4-5, moderate bilaterally at C5-6 and mild bilaterally C 6-7. There is synovial hypertrophy posterior to the dens. CONCLUSION: Diffuse advanced discogenic degenerative changes. No evidence of fracture or spondylolisthesis. Leroy Stinson MD on December 31, 2016 at 4:52 Board Certified Radiologist. This report was verified electronically.
[2016-12-31 05:42] LABS: AUTOMATED NEUTROPHIL # 9.1 TH/MM3 (1.8-7.7); BASOPHIL % 0.1 % (0.0-2.0); HEMATOCRIT 27.3 % (35.0-46.0); HEMO FLAGS DIFF FINAL; LYMPH % 1.8 % (9.0-44.0); LYMPHOCYTE # 0.2 TH/MM3 (1.0-4.8); MEAN CELL VOLUME 78.2 FL (80.0-100.0); MEAN CORPUSCULAR HEMOGLOBIN 26.4 PG (27.0-34.0); MEAN CORPUSCULAR HGB CONC 33.7 % (32.0-36.0); MONO % 6.4 % (0.0-8.0); NEUT % 91.7 % (16.0-70.0); PLATELET COUNT 176 TH/MM3 (150-450); RED BLOOD COUNT 3.49 MIL/MM3 (4.00-5.30)
[2016-12-31 05:56] LABS: BICARBONATE 18.2 MEQ/L (21.0-32.0); POTASSIUM 3.8 MEQ/L (3.5-5.1)
[2016-12-31] MEDS: INSULIN ASPART SUPPLEMENTAL SCALE SQ SCH ×4 (06:31→21:00)
[2016-12-31] MEDS: SODIUM CHLORIDE 0.9% FLUSH 10 ML FLUSH IV FLUSH SCH ×2 (08:23→20:59)
[2016-12-31] MEDS: HEPARIN SODIUM - SQ 10,000 UNITS/ML VIAL SQ SCH ×2 (08:23→21:01)
[2016-12-31] MEDS ORDERED: NON-FORMULARY DRUG (Cranberry (Vaccinium Macrocarpon) (Cranberry) 500 MG) PO SCH (09:00)
[2016-12-31] MEDS ORDERED: SIMETHICONE 80 MG CHEWABLE TAB CHEW PRN (09:00)
[2016-12-31] MEDS ORDERED: ACETAMINOPHEN 500 MG CPLT PO PRN (09:00)
[2016-12-31] MEDS ORDERED: [UNRECOGNIZED DRUG - OTHER] PO SCH (09:00)
--- NOTE | 2016-12-31 09:07 | HHI.PR ---
Subjective Remarks Follow-up for sepsis/UTI Patient's nurse is at the bedside. Patient complaining of chronic foot pain. She is asking for medication for. When I asked patient what brought her here. She stated that the rehabilitation facility told her to come to the hospital. Patient was able to tell me her first and last name. When I asked her the location she stated she did not know. When asked her she was in the hospital she said yes. When asked her the month and day she said in 1948. Patient answers questions appropriately. She denies any abdominal pain. She denies any urinary symptoms. Patient remains afebrile. Objective Vitals Vital Signs Date Time Temp Pulse Resp B/P Pulse Ox O2 Delivery O2 Flow Rate FiO2 12/31/16 08:57 98 Nasal Cannula 1.00 12/31/16 07:00 98 Nasal Cannula 2.00 12/31/16 06:00 85 12/31/16 04:00 90 20 110/53 12/31/16 04:00 87 12/31/16 02:00 80 12/31/16 00:35 98 Nasal Cannula 1.00 12/31/16 00:00 97.4 80 26 131/60 12/31/16 00:00 80 12/30/16 22:00 95 Nasal Cannula 2.00 12/30/16 22:00 99.8 83 24 132/63 12/30/16 22:00 83 12/30/16 17:54 88 18 113/48 94 Room Air 12/30/16 16:07 100 Room Air 12/30/16 16:05 18 12/30/16 15:33 98.2 96 18 107/46 98 I/O 12/30/16 12/30/16 12/30/16 12/31/16 12/31/16 12/31/16 07:00 15:00 23:00 07:00 15:00 23:00 Intake Total 52 ml 548 ml Output Total 70 ml 600 ml Balance -18 ml -52 ml Intake Oral 0 ml 450 ml IV Total 52 ml 98 ml Output Urine Total 70 ml 600 ml # Voids 2 4 1 # Bowel Movements 1 1 Result Diagram: 12/31/16 0514 12/31/1614 Objective Remarks GENERAL: in NAD SKIN: Warm and dry. HEAD: Normocephalic. EYES: No scleral icterus. No injection or drainage. NECK: Supple, trachea midline. No JVD or lymphadenopathy. CARDIOVASCULAR: Regular rate and rhythm without murmurs, gallops, or rubs. RESPIRATORY: Breath sounds equal bilaterally. No accessory muscle use. GASTROINTESTINAL: Abdomen soft, non-tender, nondistended. MUSCULOSKELETAL: No cyanosis, or edema. BACK: Nontender without obvious deformity. No CVA tenderness. Medications and IVs Current Medications Sodium Chloride 2 ml 2 ml UNSCH PRN IV FLUSH FLUSH AFTER USING IV ACCESS; Start 12/30/16 at 15:45; Stop 12/30/16 at 20:24; Status DC Sodium Chloride (NS 500 ml Inj) 500 ml @ 500 mls/hr ONCE ONCE IV Last administered on 12/30/16 16:04; Start 12/30/16 at 15:45; Stop 12/30/16 at 16:44 ; Status DC Ondansetron HCl 4 mg 4 mg ONCE ONCE IV PUSH Last administered on 12/30/16 16: 05; Start 12/30/16 at 16:15; Stop 12/30/16 at 16:16; Status DC Sodium Chloride 1,000 ml @ 1,000 mls/hr Q1H IV Last administered on 12/30/16 17:44; Start 12/30/16 at 17:27; Stop 12/30/16 at 18:26; Status DC Piperacillin Sod/ Tazobactam Sod (Zosyn 4.5 Gm Premix) 100 ml @ 200 mls/hr ONCE ONCE IV Last administered on 12/30/16 17:45; Start 12/30/16 at 17:30; Stop 12/30/16 at 17:59; Status DC Iohexol (Omnipaque 350 Inj) 100 ml STK-MED ONCE IV Last administered on 18:17; Start 12/30/16 at 18:17; Stop 12/30/16 at 18:18; Status DC Sodium Chloride (NS Flush) 2 ml UNSCH PRN IV FLUSH FLUSH AFTER USING IV ACCESS ; Start 12/30/16 at 20:15 Sodium Chloride (NS Flush) 2 ml BID IV FLUSH Last administered on 12/31/16 08: 23; Start 12/30/16 at 21:00 Naloxone HCl (Narcan Inj) 0.4 mg UNSCH PRN IV SEE LABEL COMMENTS; Start at 20:15 Dextrose (D50w (Vial) Inj) 50 ml UNSCH PRN IV HYPOGLYCEMIA-SEE COMMENTS; Start 12/30/16 at 20:15 Glucagon (Glucagon Inj) 1 mg UNSCH PRN OTHER HYPOGLYCEMIA-SEE COMMENTS; Start 12/30/16 at 20:15 Insulin Aspart 1 1 ACHS SLIDING SCALE SQ Last administered on 12/30/16 22:05 ; Start 12/30/16 at 21:00 Levofloxacin/ Dextrose (Levaquin 750 Mg Premix Inj) 150 ml @ 100 mls/hr Q24H IV Last administered on 12/30/16 21:16; Start 12/30/16 at 21:00 Miscellaneous Information 1 Q361D XX ; Start 12/30/16 at 21:30 Chlorhexidine Gluconate (Chlorhexidine 2% Cloth) 3 pack Taper DAILY@04 TOP Last administered on 12/31/16 03:45; Start 12/31/16 at 04:00; Stop 12/27/17 at 03:59 Chlorhexidine Gluconate (Chlorhexidine 2% Cloth) 3 pack UNSCH PRN TOP HYGIENIC CARE; Start 12/30/16 at 21:30 Heparin Sodium (Porcine) (Heparin Inj) 5,000 units Q12HR SQ Last administered on 12/31/16 08:23; Start 12/31/16 at 09:00 Ondansetron HCl (Zofran Inj) 4 mg Q6HR PRN IV PUSH NAUSEA OR VOMITING; Start at 03:15 Potassium Chloride (KCl) 30 meq ONCE ONCE PO Last administered on 12/31/16 03 :45; Start 12/31/16 at 03:30; Stop 12/31/16 at 03:31; Status DC A/P Assessment and Plan Sepsis secondary to UTI - Temperature 99.8 in ED with tachycardia and hypoxia with tachypnea, WBC low at 2.8 with elevation in band neutrophils (left shift) - Lactic acid initially 4.6 and 2.3 on repeat, Chest x-ray with no acute cardiopulmonary disease noted, UA suggestive of UTI -on Levaquin 750 mg IV q24h - -Patient improving quickly. -Continue Levaquin pending urine cultures. Type 2 DM - Accu-Cheks before meals and at bedtime with low-dose NovoLog sliding scale coverage - Hypoglycemia protocol - 2200 kcal ADA conservative carb diet - Monitor trends and blood glucose readings and adjust treatment as indicated Neck pain following fall with head impact - check CT cervical spine without contrast to evaluate for injury - Head CT no acute abnormality, age related atrophy, suspected small vessel ischemic change throughout the white matter, bilateral old lacunar infarcts Chronic lower extremity pain -Will restart patient's Tylenol for pain since this is what she's taking at home. Nausea and vomiting - Patient has had none since being admitted to the hospital from the ED - Zofran 4 mg IV q6h PRN n/v -Resolved. Maybe secondary to her UTI. Hypokalemia - Potassium 3.2 on admission - Replenish as needed. DVT prophylaxis - Heparin 5000 units subq q12h . Discharge Planning Patient is medically stable to be transferred out of the ICU. Order placed. Dealt with patient's nurse at the bedside. Elly Mejia MD Dec 31, 2016 09:07
[2016-12-31] MEDS: ASCORBIC ACID 500 MG TAB PO SCH ×2 (09:36→21:00)
[2016-12-31] MEDS: SODIUM CHLOR 0.9% 1000 ML INJ 1,000 ML IV SCH ×2 (11:46→21:07)
[2016-12-31] MEDS: ASPIRIN EC 81 MG TABEC PO SCH (21:00)
[2016-12-31] MEDS: ATORVASTATIN 40 MG TAB PO SCH (21:00)
[2016-12-31] MEDS ORDERED: METHENAMINE HIPPURATE PO SCH (21:00)
[2016-12-31] MEDS: DONEPEZIL HCL 5 MG TAB PO SCH (21:01)
[2017-01-01] VITALS (14 sets, daily range): BP systolic 131–164; BP diastolic 51–88; PULSE 63–84; RESP 16–36; TEMP 97.9–99; O2SAT 95–100
[2017-01-01] MEDS: CHLORHEXIDINE GLUCONATE 2 % 1 PACK (2 CLOTHS) TOP SCH (03:13)
[2017-01-01 05:14] LABS: HEMATOCRIT 24.4 % (35.0-46.0); MEAN CELL VOLUME 78.7 FL (80.0-100.0); MEAN CORPUSCULAR HEMOGLOBIN 25.7 PG (27.0-34.0); MEAN CORPUSCULAR HGB CONC 32.7 % (32.0-36.0); PLATELET COUNT 143 TH/MM3 (150-450); RED CELL DISTRIBUTION WIDTH 15.3 % (11.6-17.2); REVIEW FLAG FINAL; WHITE BLOOD COUNT 10.4 TH/MM3 (4.0-11.0)
[2017-01-01 05:45] LABS: BICARBONATE 20.5 MEQ/L (21.0-32.0); POTASSIUM 3.5 MEQ/L (3.5-5.1)
[2017-01-01 06:03] LABS: CALCIUM-PROTEIN CORRECTED 8.4 MG/DL (8.5-10.1)
[2017-01-01] MEDS: INSULIN ASPART SUPPLEMENTAL SCALE SQ SCH ×4 (06:05→21:51)
[2017-01-01] MEDS: SODIUM CHLOR 0.9% 1000 ML INJ 1,000 ML IV SCH (06:45)
[2017-01-01] MEDS: SODIUM CHLORIDE 0.9% FLUSH 10 ML FLUSH IV FLUSH SCH ×2 (08:45→21:37)
[2017-01-01] MEDS: ASCORBIC ACID 500 MG TAB PO SCH ×2 (08:46→21:37)
[2017-01-01] MEDS: HEPARIN SODIUM - SQ 10,000 UNITS/ML VIAL SQ SCH ×2 (08:46→21:37)
[2017-01-01] MEDS: CALCIUM/VITAMIN D 250 MG/125 U TAB PO SCH (08:46)
--- NOTE | 2017-01-01 10:30 | HHI.PR ---
Subjective Remarks Follow-up for questionable UTI and sepsis Patient has no complaints. She stated that she is doing well. Yesterday patient was hypotensive and was given some fluids and hypotension resolved quickly. Patient is asking to ambulate. She stated that she worked with physical therapist this morning. Patient remains afebrile. She is AAO 2. She knows her name and location. She seems that she is at her baseline. Patient answer questions appropriately. Denied any pain. Objective Vitals Vital Signs Date Time Temp Pulse Resp B/P Pulse Ox O2 Delivery O2 Flow Rate FiO2 01/01/17 10:00 73 01/01/17 09:17 100 Nasal Cannula 2.00 01/01/17 09:00 84 36 164/69 96 01/01/17 08:00 63 01/01/17 08:00 97.9 63 16 147/65 98 01/01/17 07:00 99 Nasal Cannula 2.00 01/01/17 07:00 63 18 134/88 99 01/01/17 06:00 64 01/01/17 04:00 98.3 66 16 138/65 96 01/01/17 04:00 65 01/01/17 02:00 77 01/01/17 00:00 99.0 67 29 154/64 95 01/01/17 00:00 73 12/31/16 22:00 71 12/31/16 20:00 98.3 70 34 112/55 99 12/31/16 20:00 70 12/31/16 19:00 99 Nasal Cannula 2.00 12/31/16 18:00 68 12/31/16 18:00 68 15 101/49 98 12/31/16 17:00 72 23 105/49 99 12/31/16 16:00 99.6 73 22 94/46 99 12/31/16 16:00 73 12/31/16 15:00 77 24 108/50 98 12/31/16 14:00 77 23 103/51 99 12/31/16 14:00 77 12/31/16 13:00 89 34 97/51 93 12/31/16 12:00 98.1 80 25 96/47 98 12/31/16 12:00 80 12/31/16 11:00 76 23 92/46 97 I/O 12/31/16 12/31/16 12/31/16 01/01/1701/01/17 6/29/17 07:00 15:00 23:00 07:00 15:00 23:00 Intake Total 548 ml 1318 ml 971 ml 571 ml Output Total 600 ml 1 ml Balance -52 ml 1317 ml 971 ml 571 ml Intake Oral 450 ml 888 ml 120 ml 0 ml IV Total 98 ml 430 ml 851 ml 571 ml Output Urine Total 600 ml 1 ml Stool Total 0 ml # Voids 4 3 4 2 # Bowel Movements 2 1 1 Result Diagram: 01/01/17 0506 01/01/17 0506 Objective Remarks GENERAL: in NAD SKIN: Warm and dry. HEAD: Normocephalic. EYES: No scleral icterus. No injection or drainage. NECK: Supple, trachea midline. No JVD or lymphadenopathy. CARDIOVASCULAR: Regular rate and rhythm without murmurs, gallops, or rubs. RESPIRATORY: Breath sounds equal bilaterally. No accessory muscle use. GASTROINTESTINAL: Abdomen soft, non-tender, nondistended. MUSCULOSKELETAL: No cyanosis, or edema. BACK: Nontender without obvious deformity. No CVA tenderness. Medications and IVs Current Medications Sodium Chloride 2 ml 2 ml UNSCH PRN IV FLUSH FLUSH AFTER USING IV ACCESS; Start 12/30/16 at 15:45; Stop 12/30/16 at 20:24; Status DC Sodium Chloride (NS 500 ml Inj) 500 ml @ 500 mls/hr ONCE ONCE IV Last administered on 12/30/16 16:04; Start 12/30/16 at 15:45; Stop 12/30/16 at 16:44 ; Status DC Ondansetron HCl 4 mg 4 mg ONCE ONCE IV PUSH Last administered on 12/30/16 16: 05; Start 12/30/16 at 16:15; Stop 12/30/16 at 16:16; Status DC Sodium Chloride 1,000 ml @ 1,000 mls/hr Q1H IV Last administered on 12/30/16 17:44; Start 12/30/16 at 17:27; Stop 12/30/16 at 18:26; Status DC Piperacillin Sod/ Tazobactam Sod (Zosyn 4.5 Gm Premix) 100 ml @ 200 mls/hr ONCE ONCE IV Last administered on 12/30/16 17:45; Start 12/30/16 at 17:30; Stop 12/30/16 at 17:59; Status DC Iohexol (Omnipaque 350 Inj) 100 ml STK-MED ONCE IV Last administered on 18:17; Start 12/30/16 at 18:17; Stop 12/30/16 at 18:18; Status DC Sodium Chloride (NS Flush) 2 ml UNSCH PRN IV FLUSH FLUSH AFTER USING IV ACCESS ; Start 12/30/16 at 20:15 Sodium Chloride (NS Flush) 2 ml BID IV FLUSH Last administered on 01/01/17 08: 45; Start 12/30/16 at 21:00 Naloxone HCl (Narcan Inj) 0.4 mg UNSCH PRN IV SEE LABEL COMMENTS; Start at 20:15 Dextrose (D50w (Vial) Inj) 50 ml UNSCH PRN IV HYPOGLYCEMIA-SEE COMMENTS; Start 12/30/16 at 20:15 Glucagon (Glucagon Inj) 1 mg UNSCH PRN OTHER HYPOGLYCEMIA-SEE COMMENTS; Start 12/30/16 at 20:15 Insulin Aspart 1 1 ACHS SLIDING SCALE SQ Last administered on 12/31/16 16:24 ; Start 12/30/16 at 21:00 Levofloxacin/ Dextrose (Levaquin 750 Mg Premix Inj) 150 ml @ 100 mls/hr Q24H IV Last administered on 12/30/16 21:16; Start 12/30/16 at 21:00; Stop at 14:39; Status DC Miscellaneous Information 1 Q361D XX ; Start 12/30/16 at 21:30 Chlorhexidine Gluconate (Chlorhexidine 2% Cloth) 3 pack Taper DAILY@04 TOP Last administered on 01/01/17 03:13; Start 12/31/16 at 04:00; Stop 12/27/17 at 03:59 Chlorhexidine Gluconate (Chlorhexidine 2% Cloth) 3 pack UNSCH PRN TOP HYGIENIC CARE; Start 12/30/16 at 21:30 Heparin Sodium (Porcine) (Heparin Inj) 5,000 units Q12HR SQ Last administered on 01/01/17 08:46; Start 12/31/16 at 09:00 Ondansetron HCl (Zofran Inj) 4 mg Q6HR PRN IV PUSH NAUSEA OR VOMITING; Start at 03:15 Potassium Chloride (KCl) 30 meq ONCE ONCE PO Last administered on 12/31/16 03 :45; Start 12/31/16 at 03:30; Stop 12/31/16 at 03:31; Status DC Acetaminophen (Tylenol) 500 mg Q6H PRN PO PAIN SCALE 1 TO 10 Last administered on 12/31/16 09:37; Start 12/31/16 at 09:00 Ascorbic Acid (Vitamin C) 500 mg BID PO Last administered on 01/01/17 08:46; Start 12/31/16 at 09:00 Aspirin (Ecotrin Ec) 81 mg HS PO Last administered on 12/31/16 21:00; Start at 21:00 Atorvastatin Calcium (Lipitor) 40 mg HS PO Last administered on 12/31/16 21:00 ; Start 12/31/16 at 21:00 Simethicone (Mylicon Chew) 80 mg QID PRN CHEW GAS RETENTION; Start 12/31/16 at 09:00 Non-Formulary Medication 1 cap DAILY PO ; Start 12/31/16 at 09:00; Stop at 09:29; Status DC Calcium/Vitamin D (Oscal-D 250-125) 500 mg DAILY PO Last administered on 08:46; Start 01/01/17 at 09:00 Non-Formulary Medication 500 mg DAILY PO ; Start 12/31/16 at 09:00; Stop at 09:24; Status DC Donepezil HCl (Aricept) 10 mg HS PO Last administered on 12/31/16 21:01; Start 12/31/16 at 21:00 Patient Own Medication PT OWN MED: Methenam... BID PO ; Start 12/31/16 at 21:00 ; Status Hold Sodium Chloride 1,000 ml @ 100 mls/hr Q10H IV Last administered on 01/01/17 06:45; Start 12/31/16 at 11:45; Stop 01/01/17 at 09:55; Status DC Levofloxacin/ Dextrose (Levaquin 750 Mg Premix Inj) 150 ml @ 100 mls/hr Q48H IV ; Start 01/01/17 at 21:00 A/P Assessment and Plan SIRS - Temperature 99.8 in ED with tachycardia and hypoxia with tachypnea, WBC low at 2.8 with elevation in band neutrophils (left shift) - Lactic acid initially 4.6 and 2.3 on repeat, Chest x-ray with no acute cardiopulmonary disease noted, UA suggestive of UTI cultures are negative and she was asymptomatic. -on Levaquin 750 mg IV q24h. will discontinue Levaquin based on cultures. - Monitor off for cultures. 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 Chronic lower extremity pain -Controlled with Tylenol. Nausea and vomiting - Patient has had none since being admitted to the hospital from the ED - Zofran 4 mg IV q6h PRN n/v -Resolved. Hypokalemia - Potassium 3.2 on admission - Replenish as needed. DVT prophylaxis - Heparin 5000 units subq q12h . Discharge Planning Patient is medically stable to be transferred out of the ICU. Dealt with patient's nurse. If patient does well without any IV antibiotics possible discharge tomorrow. Elly Mejia MD Jan 01, 2017 10:30
[2017-01-01] MEDS ORDERED: LEVOFLOXACIN 750 MG PREMIX INJ 150 ML IV SCH (21:00)
[2017-01-01] MEDS: DONEPEZIL HCL 5 MG TAB PO SCH (21:36)
[2017-01-01] MEDS: ASPIRIN EC 81 MG TABEC PO SCH (21:36)
[2017-01-01] MEDS: ATORVASTATIN 40 MG TAB PO SCH (21:37)
[2017-01-02 00:06] VITALS: BP 145/59; PULSE 62; RESP 18; TEMP 97.6; O2SAT 98
[2017-01-02] MEDS: CHLORHEXIDINE GLUCONATE 2 % 1 PACK (2 CLOTHS) TOP SCH (03:53)
[2017-01-02 06:08] VITALS: BP 147/68; PULSE 59; RESP 16; TEMP 96.5; O2SAT 99
[2017-01-02] MEDS: INSULIN ASPART SUPPLEMENTAL SCALE SQ SCH ×2 (06:27→12:24)
[2017-01-02 08:00] VITALS: BP 156/67; PULSE 64; RESP 20; TEMP 97.3; O2SAT 98
--- NOTE | 2017-01-02 08:08 | PD ---
Data Data Last Documented VS Vital Signs Date Time Temp Pulse Resp B/P Pulse Ox O2 Delivery O2 Flow Rate FiO2 12/30/16 17:54 88 18 113/48 94 Room Air 12/30/16 15:33 98.2 Orders Complete Blood Count With Diff (12/30/16 15:39) Comprehensive Metabolic Panel (12/30/16 15:39) Lipase (12/30/16 15:39) Prothrombin Time / Inr (Pt) (12/30/16 15:39) Act Partial Throm Time (Ptt) (12/30/16 15:39) Urinalysis - C+S If Indicated (12/30/16 15:39) Ct Abd/Pel W Iv Contrast(Rout) (12/30/16 15:39) Iv Access Insert/Monitor (12/30/16 15:39) Ecg Monitoring (12/30/16 15:39) Oximetry (12/30/16 15:39) Sodium Chloride 0.9% Flush (Ns Flush) (12/30/16 15:45) Sodium Chlorid 0.9% 500 Ml Inj (Ns 500 M (12/30/16 15:45) Chest, Single Ap (12/30/16 15:39) Ct Brain W/O Iv Contrast(Rout) (12/30/16 15:41) Lactic Acid Sepsis Protocol (12/30/16 15:44) Ondansetron Inj (Zofran Inj) (12/30/16 16:15) Urine Culture (12/30/16 16:27) Sodium Chlor 0.9% 1000 Ml Inj (Ns 1000 M (12/30/16 17:27) Piperacil-Tazo 4.5 Gm Premix (Zosyn 4.5 (12/30/16 17:30) Iohexol 350 Inj (Omnipaque 350 Inj) (12/30/16 18:17) Admit Order (Ed Use Only) (12/30/16 19:46) Labs Laboratory Tests Test 12/30/16 12/30/16 12/30/16 16:15 16:27 18:33 White Blood Count 2.8 TH/MM3 Red Blood Count 3.97 MIL/MM3 Hemoglobin 10.2 GM/DL Hematocrit 31.5 % Mean Corpuscular Volume 79.3 FL Mean Corpuscular Hemoglobin 25.8 PG Mean Corpuscular Hemoglobin 32.6 % Concent Red Cell Distribution Width 15.0 % Platelet Count 262 TH/MM3 Mean Platelet Volume 8.2 FL Neutrophils (%) (Auto) % Lymphocytes (%) (Auto) % Monocytes (%) (Auto) % Eosinophils (%) (Auto) % Basophils (%) (Auto) % Neutrophils # (Auto) TH/MM3 Lymphocytes # (Auto) TH/MM3 Monocytes # (Auto) TH/MM3 Eosinophils # (Auto) TH/MM3 Basophils # (Auto) TH/MM3 CBC Comment AUTO DIFF Differential Total Cells 100 Counted Neutrophils % (Manual) 53 % Band Neutrophils % 41 % Lymphocytes % 5 % Eosinophils % 1 % Neutrophils # (Manual) 2.6 TH/MM3 Differential Comment FINAL DIFF MANUAL Dohle Bodies PRESENT Platelet Estimate NORMAL Platelet Morphology Comment NORMAL Ovalocytes 1+ Prothrombin Time 11.1 SEC Prothromb Time International 1.0 RATIO Ratio Activated Partial 22.9 SEC Thromboplast Time Sodium Level 135 MEQ/L Potassium Level 3.2 MEQ/L Chloride Level 99 MEQ/L Carbon Dioxide Level 23.4 MEQ/L Anion Gap 13 MEQ/L Blood Urea Nitrogen 14 MG/DL Creatinine 1.06 MG/DL Estimat Glomerular Filtration 49 ML/MIN Rate Random Glucose 180 MG/DL Lactic Acid Level 4.6 mmol/L 2.3 mmol/L Calcium Level 8.8 MG/DL Total Bilirubin 0.5 MG/DL Aspartate Amino Transf 12 U/L (AST/SGOT) Alanine Aminotransferase 20 U/L (ALT/SGPT) Alkaline Phosphatase 70 U/L Total Protein 6.9 GM/DL Albumin 3.5 GM/DL Lipase 327 U/L Urine Color YELLOW Urine Turbidity HAZY Urine pH 6.0 Urine Specific [place] 1.012 Urine Protein TRACE mg/dL Urine Glucose (UA) NEG mg/dL Urine Ketones NEG mg/dL Urine Occult Blood MOD Urine Nitrite NEG Urine Bilirubin NEG Urine Urobilinogen LESS THAN 2.0 MG/DL Urine Leukocyte Esterase LARGE Urine RBC 47 /hpf Urine WBC 77 /hpf Urine WBC Clumps OCC Urine Squamous Epithelial 1 /hpf Cells Urine Bacteria OCC /hpf Microscopic Urinalysis Comment CULTURE INDICATED MDM Supervised Visit with [facility]: Yes Interpretation(s) CBC & BMP Diagram 12/30/16 16:15 Narrative Course I, Dr. dos santos, have reviewed the advance practice practitioner's documentation and am in agreement, made the diagnosis, and the medical decision making was done by me. *My assessment and Findings: 86-year-old female who presents status post fall with findings concerning for sepsis. CT abdomen pelvis is pending on my departure Sepsis Criteria SIRS Criteria (2 or more): WBC > 33245, < 4000 or > 10% bands Sepsis Criteria (SIRS+source): Infect source susp/known Severe Sepsis (+one): Lactate >2 Septic Shock Criteria: Lactic acid >=4 Criteria Outcome: Meets septic shock criteria Physician Communication Physician Communication dr dominguez given signout to follow ct abdomen and patient will need close monitoring in icu given age and concern for septic shock Diagnosis Primary Impression: Sepsis Qualified Code: A41.9 - Sepsis, due to unspecified organism Additional Impression: UTI (urinary tract infection) Qualified Code: N39.0 - Urinary tract infection with hematuria, site unspecified Loulou Dos Santos MD Jan 02, 2017 08:08
[2017-01-02] MEDS: CALCIUM/VITAMIN D 250 MG/125 U TAB PO SCH (09:20)
[2017-01-02] MEDS: ASCORBIC ACID 500 MG TAB PO SCH (09:20)
[2017-01-02 09:21] VITALS: O2SAT 98
[2017-01-02] MEDS: SODIUM CHLORIDE 0.9% FLUSH 10 ML FLUSH IV FLUSH SCH (09:21)
[2017-01-02] MEDS: HEPARIN SODIUM - SQ 10,000 UNITS/ML VIAL SQ SCH (09:21)
--- NOTE | 2017-01-02 10:18 | HHI.PR ---
Subjective Remarks Follow-up SIRS Patient has no complaints. She stated that she takes care of herself at home. She denies any shortness of breathing, generalized weakness, pain, nausea or vomiting. Per patient's nurse patient does need full assistance. She remains afebrile off antibiotics. Objective Vitals Vital Signs Date Time Temp Pulse Resp B/P Pulse Ox O2 Delivery O2 Flow Rate FiO2 01/02/17 09:25 Nasal Cannula 1.00 01/02/17 09:21 98 Nasal Cannula 2.00 01/02/17 08:00 97.3 64 20 156/67 98 01/02/17 06:08 96.5 59 16 147/68 99 01/02/17 00:06 97.6 62 18 145/59 98 01/01/17 21:55 99.0 65 19 131/51 98 01/01/17 21:51 Nasal Cannula 2.00 01/01/17 20:31 66 01/01/17 15:06 98.1 66 18 164/67 98 01/01/17 12:00 98.3 64 21 141/63 99 01/01/17 12:00 64 01/01/17 11:00 69 21 162/66 99 I/O 01/01/17 01/01/17 01/01/17 01/02/17 01/02/17 01/02/17 06:59 14:59 22:59 06:59 14:59 22:59 Intake Total 571 ml 1069 ml Output Total 4 ml Balance 571 ml 1065 ml Intake Oral 0 ml 666 ml IV Total 571 ml 403 ml Output Urine Total 4 ml Stool Total 0 ml # Voids 2 # Bowel Movements 1 0 Result Diagram: 01/01/17 0506 01/01/17 0506 Objective Remarks GENERAL: in NAD SKIN: Warm and dry. HEAD: Normocephalic. EYES: No scleral icterus. No injection or drainage. NECK: Supple, trachea midline. No JVD or lymphadenopathy. CARDIOVASCULAR: Regular rate and rhythm without murmurs, gallops, or rubs. RESPIRATORY: Breath sounds equal bilaterally. No accessory muscle use. GASTROINTESTINAL: Abdomen soft, non-tender, nondistended. MUSCULOSKELETAL: No cyanosis, or edema. BACK: Nontender without obvious deformity. No CVA tenderness. Medications and IVs Current Medications Sodium Chloride 2 ml 2 ml UNSCH PRN IV FLUSH FLUSH AFTER USING IV ACCESS; Start 12/30/16 at 15:45; Stop 12/30/16 at 20:24; Status DC Sodium Chloride (NS 500 ml Inj) 500 ml @ 500 mls/hr ONCE ONCE IV Last administered on 12/30/16 16:04; Start 12/30/16 at 15:45; Stop 12/30/16 at 16:44 ; Status DC Ondansetron HCl 4 mg 4 mg ONCE ONCE IV PUSH Last administered on 12/30/16 16: 05; Start 12/30/16 at 16:15; Stop 12/30/16 at 16:16; Status DC Sodium Chloride 1,000 ml @ 1,000 mls/hr Q1H IV Last administered on 12/30/16 17:44; Start 12/30/16 at 17:27; Stop 12/30/16 at 18:26; Status DC Piperacillin Sod/ Tazobactam Sod (Zosyn 4.5 Gm Premix) 100 ml @ 200 mls/hr ONCE ONCE IV Last administered on 12/30/16 17:45; Start 12/30/16 at 17:30; Stop 12/30/16 at 17:59; Status DC Iohexol (Omnipaque 350 Inj) 100 ml STK-MED ONCE IV Last administered on 18:17; Start 12/30/16 at 18:17; Stop 12/30/16 at 18:18; Status DC Sodium Chloride (NS Flush) 2 ml UNSCH PRN IV FLUSH FLUSH AFTER USING IV ACCESS ; Start 12/30/16 at 20:15 Sodium Chloride (NS Flush) 2 ml BID IV FLUSH Last administered on 01/02/17 09: 21; Start 12/30/16 at 21:00 Naloxone HCl (Narcan Inj) 0.4 mg UNSCH PRN IV SEE LABEL COMMENTS; Start at 20:15 Dextrose (D50w (Vial) Inj) 50 ml UNSCH PRN IV HYPOGLYCEMIA-SEE COMMENTS; Start 12/30/16 at 20:15 Glucagon (Glucagon Inj) 1 mg UNSCH PRN OTHER HYPOGLYCEMIA-SEE COMMENTS; Start 12/30/16 at 20:15 Insulin Aspart 1 1 ACHS SLIDING SCALE SQ Last administered on 01/01/17 21:51 ; Start 12/30/16 at 21:00 Levofloxacin/ Dextrose (Levaquin 750 Mg Premix Inj) 150 ml @ 100 mls/hr Q24H IV Last administered on 12/30/16 21:16; Start 12/30/16 at 21:00; Stop at 14:39; Status DC Miscellaneous Information 1 Q361D XX ; Start 12/30/16 at 21:30 Chlorhexidine Gluconate (Chlorhexidine 2% Cloth) 3 pack Taper DAILY@04 TOP Last administered on 01/01/17 03:13; Start 12/31/16 at 04:00; Stop 12/27/17 at 03:59 Chlorhexidine Gluconate (Chlorhexidine 2% Cloth) 3 pack UNSCH PRN TOP HYGIENIC CARE; Start 12/30/16 at 21:30 Heparin Sodium (Porcine) (Heparin Inj) 5,000 units Q12HR SQ Last administered on 01/02/17 09:21; Start 12/31/16 at 09:00 Ondansetron HCl (Zofran Inj) 4 mg Q6HR PRN IV PUSH NAUSEA OR VOMITING; Start at 03:15 Potassium Chloride (KCl) 30 meq ONCE ONCE PO Last administered on 12/31/16 03 :45; Start 12/31/16 at 03:30; Stop 12/31/16 at 03:31; Status DC Acetaminophen (Tylenol) 500 mg Q6H PRN PO PAIN SCALE 1 TO 10 Last administered on 12/31/16 09:37; Start 12/31/16 at 09:00 Ascorbic Acid (Vitamin C) 500 mg BID PO Last administered on 01/02/17 09:20; Start 12/31/16 at 09:00 Aspirin (Ecotrin Ec) 81 mg HS PO Last administered on 01/01/17 21:36; Start at 21:00 Atorvastatin Calcium (Lipitor) 40 mg HS PO Last administered on 01/01/17 21:37 ; Start 12/31/16 at 21:00 Simethicone (Mylicon Chew) 80 mg QID PRN CHEW GAS RETENTION; Start 12/31/16 at 09:00 Non-Formulary Medication 1 cap DAILY PO ; Start 12/31/16 at 09:00; Stop at 09:29; Status DC Calcium/Vitamin D (Oscal-D 250-125) 500 mg DAILY PO Last administered on 09:20; Start 01/01/17 at 09:00 Non-Formulary Medication 500 mg DAILY PO ; Start 12/31/16 at 09:00; Stop at 09:24; Status DC Donepezil HCl (Aricept) 10 mg HS PO Last administered on 01/01/17 21:36; Start 12/31/16 at 21:00 Patient Own Medication PT OWN MED: Methenam... BID PO ; Start 12/31/16 at 21:00 ; Status Hold Sodium Chloride 1,000 ml @ 100 mls/hr Q10H IV Last administered on 01/01/17 06:45; Start 12/31/16 at 11:45; Stop 01/01/17 at 09:55; Status DC Levofloxacin/ Dextrose (Levaquin 750 Mg Premix Inj) 150 ml @ 100 mls/hr Q48H IV ; Start 01/01/17 at 21:00; Stop 01/01/17 at 21:00; Status DC A/P Assessment and Plan SIRS - Temperature 99.8 in ED with tachycardia and hypoxia with tachypnea, WBC low at 2.8 with elevation in band neutrophils (left shift) - Lactic acid initially 4.6 and 2.3 on repeat, Chest x-ray with no acute cardiopulmonary disease noted, UA suggestive of UTI cultures are negative and she was asymptomatic. -Patient was initially on Levaquin which was discontinued on the since urine cultures were negative. She continues to do well off of antibiotics.. 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 Chronic lower extremity pain -Controlled with Tylenol. Nausea and vomiting - Patient has had none since being admitted to the hospital from the ED - Zofran 4 mg IV q6h PRN n/v -Resolved. Hypokalemia - Potassium 3.2 on admission - Replenish as needed. DVT prophylaxis - Heparin 5000 units subq q12h . Discharge Planning Patient is medically stable for discharge to SNF. Dealt with case management. Elly Mejia MD Jan 02, 2017 10:18
[2017-01-02] MEDS ORDERED: LOSA50TA PO (11:21)
--- NOTE | 2017-01-02 11:24 | HHI.DS ---
Discharge Summary Admission Date Dec 30, 2016 at 19:47 Admitting Diagnosis Sepsis, UTI, Bandemia Brief History - From Admission Written by Joyce Villatoro, acting as scribe for Dr. Yusuf on 12/31/16 at 00:51. The patient reports a fall at home on Thursday that occurred while she was walking to the bathroom and ran into a chair. States she hit the back/top of the left side of her head. She says she came in on Thursday evening. States she was at [facility] in the [facility] when she fell (records indicate she is at [facility] in [place]). States able to walk with walker following fall. She was released from ER back to [facility]. She is unable to report why she returned to the hospital. She has dementia. Denies sob, unilateral weakness, n/v/d, reports gas only, unsure about black or red colored stool. Denies dysuria. Reports neck is painful following the fall. Unsure if she was having fevers. States "I didn't feel good" but is unable to describe this any further. ER documentation from Shanda Graff PA-C on 12/30/16 indicates that the patient was sent to the emergency room by the assisted living facility for evaluation of left flank pain, nausea, and vomiting that began after lunch. CT of abdomen and pelvis performed in the ED cannot clearly identify an acute abnormality. Lactic acid initially 4.6 and 2.3 on repeat. CBC/BMP: 01/01/17 0506 01/01/17 0506 Significant Findings Laboratory Tests Test 12/30/16 12/30/16 12/30/16 12/31/16 16:15 16:27 18:33 05:14 White Blood Count 2.8 TH/MM3 (4.0-11.0) Red Blood Count 3.97 MIL/MM3 3.49 MIL/MM3 (4.00-5.30) (4.00-5.30) Hemoglobin 10.2 GM/DL 9.2 GM/DL (11.6-15.3) (11.6-15.3) Hematocrit 31.5 % 27.3 % (35.0-46.0) (35.0-46.0) Mean Corpuscular Volume 79.3 FL 78.2 FL (80.0-100.0) (80.0-100.0) Mean Corpuscular Hemoglobin 25.8 PG 26.4 PG (27.0-34.0) (27.0-34.0) Band Neutrophils % 41 % (0-6) Lymphocytes % 5 % (9-44) Dohle Bodies PRESENT (NONE SEEN) Ovalocytes 1+ (NORMAL) Activated Partial 22.9 SEC Thromboplast Time (24.3-30.1) Sodium Level 135 MEQ/L 134 MEQ/L (136-145) (136-145) Potassium Level 3.2 MEQ/L (3.5-5.1) Creatinine 1.06 MG/DL (0.50-1.00) Estimat Glomerular Filtration 49 ML/MIN (>89) 60 ML/MIN (>89) Rate Random Glucose 180 MG/DL 140 MG/DL (74-106) (74-106) Lactic Acid Level 4.6 mmol/L 2.3 mmol/L 2.1 mmol/L (0.4-2.0) (0.4-2.0) (0.4-2.0) Aspartate Amino Transf 12 U/L (15-37) (AST/SGOT) Urine Turbidity HAZY (CLEAR) Urine Occult Blood MOD (NEG) Urine Leukocyte Esterase LARGE (NEG) Urine RBC 47 /hpf (0-3) Urine WBC 77 /hpf (0-5) Urine WBC Clumps OCC (NONE) Urine Bacteria OCC /hpf (NONE) Neutrophils (%) (Auto) 91.7 % (16.0-70.0) Lymphocytes (%) (Auto) 1.8 % (9.0-44.0) Neutrophils # (Auto) 9.1 TH/MM3 (1.8-7.7) Lymphocytes # (Auto) 0.2 TH/MM3 (1.0-4.8) Carbon Dioxide Level 18.2 MEQ/L (21.0-32.0) Calcium Level 8.1 MG/DL (8.5-10.1) Test 01/01/17 05:06 Red Blood Count 3.10 MIL/MM3 (4.00-5.30) Hemoglobin 8.0 GM/DL (11.6-15.3) Hematocrit 24.4 % (35.0-46.0) Mean Corpuscular Volume 78.7 FL (80.0-100.0) Mean Corpuscular Hemoglobin 25.7 PG (27.0-34.0) Platelet Count 143 TH/MM3 (150-450) Chloride Level 109 MEQ/L (98-107) Carbon Dioxide Level 20.5 MEQ/L (21.0-32.0) Estimat Glomerular Filtration 86 ML/MIN (>89) Rate Random Glucose 134 MG/DL (74-106) Calcium Level 7.3 MG/DL (8.5-10.1) Protein Corrected Calcium 8.4 MG/DL (8.5-10.1) Total Protein 5.1 GM/DL (6.4-8.2) PE at Discharge GENERAL: in NAD SKIN: Warm and dry. HEAD: Normocephalic. EYES: No scleral icterus. No injection or drainage. NECK: Supple, trachea midline. No JVD or lymphadenopathy. CARDIOVASCULAR: Regular rate and rhythm without murmurs, gallops, or rubs. RESPIRATORY: Breath sounds equal bilaterally. No accessory muscle use. GASTROINTESTINAL: Abdomen soft, non-tender, nondistended. MUSCULOSKELETAL: No cyanosis, or edema. BACK: Nontender without obvious deformity. No CVA tenderness. Discharge Disposition: Discharge to SNF Discharge Instructions DIET: Follow Instructions for: Heart Healthy Diet Activities you can perform: Regular-No Restrictions Elly Mejia MD Jan 02, 2017 11:23
[2017-01-02 12:00] VITALS: BP 144/67; PULSE 61; PULSE 62; RESP 21; TEMP 96.4; O2SAT 98
[2017-01-02 12:10] LABS: HEMATOCRIT 25.7 % (35.0-46.0); MEAN CELL VOLUME 77.7 FL (80.0-100.0); MEAN CORPUSCULAR HEMOGLOBIN 25.8 PG (27.0-34.0); MEAN CORPUSCULAR HGB CONC 33.2 % (32.0-36.0); PLATELET COUNT 170 TH/MM3 (150-450); RED CELL DISTRIBUTION WIDTH 15.5 % (11.6-17.2); REVIEW FLAG FINAL; WHITE BLOOD COUNT 6.4 TH/MM3 (4.0-11.0)
[2017-01-02 12:37] LABS: BICARBONATE 27.9 MEQ/L (21.0-32.0); POTASSIUM 3.8 MEQ/L (3.5-5.1)
== END 2017-01-02 14:36 | DRG 392 ==
LOC: NEPC 15:22 → NEDA 19:47 → HIMW 21:15 → HOCB 01-01 15:08
PROVIDERS: ADMIT Family Medicine; ATTEND Family Medicine
DX: R11.2 Nausea with vomiting, unspecified (principal); E87.2 Acidosis; F03.90 Unspecified dementia, unspecified severity, without behavioral disturbance, psychotic disturbance, mood disturbance, and anxiety; R65.10 Systemic inflammatory response syndrome (SIRS) of non-infectious origin without acute organ dysfunction; I10 Essential (primary) hypertension; E78.5 Hyperlipidemia, unspecified; H91.90 Unspecified hearing loss, unspecified ear; E87.6 Hypokalemia; M54.2 Cervicalgia; E11.9 Type 2 diabetes mellitus without complications; M79.606 Pain in leg, unspecified; W01.190A Fall on same level from slipping, tripping and stumbling with subsequent striking against furniture, initial encounter; Y92.009 Unspecified place in unspecified non-institutional (private) residence as the place of occurrence of the external cause; K21.9 Gastro-esophageal reflux disease without esophagitis
CPT/HCPCS: 70450; 71010; 72125; 74177; 80048; 80053; 81001; 82948; 83605; 83690; 84155; 85007; 85025; 85027; 85610; 85730; 87086; 87641; 96374; 96375; J1644; J1815; J1956; J2405; J2543; J7030; J7040; Q9967

== ENCOUNTER 2017-06-09 10:54 | Emergency (ER) | payer BC, MEDICARE ==
[~2017-06-09] VITALS: Ht 157.5 cm; Wt 65.0 kg
[~2017-06-09 10:54] MED LIST changes: +ANTI1CAP PO; -ARIC10TA2 PO; +ARIC10TA9 PO; +ASPI81TA23 PO; +C 50TAB PO; +CRAN500C2 PO; -CRANCAP2 PO; -DOCU1CAP21 PO; +DOCU50CA9 PO; -LOSA100T PO; +LOSA50TA PO; -METF500T PO; +METH1TAB2 PO; +NITR100C4 PO; -OMEP20TA PO; +OMEP20TA93 PO; -VITA250C3 CHEW; +[UNRECOGNIZED DRUG - OTHER] CHEW
[2017-06-09 11:04] VITALS: BP 180/75; PULSE 90; RESP 16; TEMP 99.2; O2SAT 100
[2017-06-09] MEDS ORDERED: SODIUM CHLORIDE 0.9% FLUSH 10 ML FLUSH IVF PRN (11:30)
--- NOTE | 2017-06-09 11:35 | PD ---
HPI . Fall Chief Complaint: Fall Time Seen by Provider: 11:23 Travel History International Travel<30 days: No Contact w/Intl Traveler<30days: No Traveled to known affect area: No History of Present Illness HPI 87-year-old female presents emergency department for evaluation after she fell as morning at her assisted living facility. Patient arrived via EMS. Patient lives in an apartment alone at the long term facility. She alerted staff that she fell this morning. Per report patient fell backwards and hit the back of her head. There is a laceration/abrasion noted to the back of her head. Patient is unsure if she lost consciousness. Patient is complaining of left hip pain. Patient does not take any blood thinners outside of the baby aspirin daily. He has no obvious deformity on any extremities. Patient is complaining of left hip pain. Patient has a history of a fractured right hip that occurred in 2016. Left upper extremity is weaker than the right with any resistance. Patient can move the left upper extremity but when resistance is added she is weaker. Patient states that she has an old shoulder injury on the left side that causes the weakness. Patient is well-appearing and well-nourished and conversing but unsure of the specifics and details surrounding her fall. PFSH Past Medical History High Cholesterol: Yes Diabetes: Yes Patient Takes Glucophage: No Diminished Hearing: Yes Hypertension: Yes Tetanus Vaccination: Unknown Influenza Vaccination: No ?: Not Menopausal: Yes Past Surgical History Appendectomy: Yes Cholecystectomy: Yes Hysterectomy: Yes Tonsillectomy: Yes Social History Alcohol Use: No Tobacco Use: No Substance Use: No Allergies-Medications (Allergen,Severity, Reaction): Coded Allergies: Sulfa (Sulfonamide Antibiotics) (Unverified Allergy, Unknown, 06/09/17) Reported Meds & Prescriptions Reported Meds & Active Scripts Active Losartan (Losartan Potassium) 50 Mg Tab 50 Mg PO DAILY Reported Zofran (Ondansetron HCl) 4 Mg Tab 4 Mg PO Q6HR PRN Mi-Acid Gas Relief (Simethicone) 80 Mg Chw 80 Mg CHEW QID PRN Anti-Diarrheal (Loperamide HCl) 2 Mg Tab 2 Mg PO Q6HR PRN Cranberry Fruit Concentrate (Cranberry (Vaccinium Macrocarpon)) 12,600 Mg-20 Mg Cap 25,000 Mg PO DAILY Melatonin 3 Mg Tab 3 Mg PO HS Claritin (Loratadine) 10 Mg Tablet 10 Mg PO DAILY Glucotrol (Glipizide) 5 Mg Tab 2.5 Mg PO BIDAC Take 30 minutes before a meal [Eye Health +Lutein] 1 Tab PO DAILY C 500 (Ascorbic Acid) 500 Mg Tab 500 Mg PO BID Methenamine Hippurate 1 Gm Tab 500 Mg PO BID Aspirin EC (Aspirin) 81 Mg Tabdr 81 Mg PO HS APAP Extra Strength (Acetaminophen) 500 Mg Tab 500 Mg PO HS Colace Clear (Docusate Sodium) 50 Mg Cap 50 Mg PO DAILY PRN Omeprazole 20 Mg Tab 20 Mg PO DAILY Aricept (Donepezil HCl) 10 Mg Tablet 10 Mg PO DAILY Calcium 600+D 200 (Calcium Carbonate-Vitamin D) 600-200 Mg-Unit Tab 1 Tab PO DAILY Atorvastatin (Atorvastatin Calcium) 40 Mg Tab 40 Mg PO HS Review of Systems Except as stated in HPI: all other systems reviewed are Neg Physical Exam Narrative GENERAL: Well-nourished well-developed 87-year-old female in no acute distress and conversing. SKIN: Focused skin assessment warm/dry. HEAD: Normocephalic. 1 cm abrasion noted to the occipital portion of the skull. EYES: Pupils equal and round. No scleral icterus. No injection or drainage. ENT: No nasal bleeding or discharge. Mucous membranes pink and moist. NECK: Trachea midline. No JVD. CARDIOVASCULAR: Regular rate and rhythm. No murmur appreciated. RESPIRATORY: No accessory muscle use. Clear to auscultation. Breath sounds equal bilaterally. GASTROINTESTINAL: Abdomen soft, non-tender, nondistended. Hepatic and splenic margins not palpable. MUSCULOSKELETAL: Left hip tenderness. Left upper extremity weakness against resistance comparatively to the right upper extremity. No obvious deformities. No clubbing. No cyanosis. No edema. NEUROLOGICAL: Awake and alert. No obvious cranial nerve deficits. Motor grossly within normal limits. Normal speech. PSYCHIATRIC: Appropriate mood and affect; insight and judgment normal. Data Data Last Documented VS Vital Signs Date Time Temp Pulse Resp B/P (MAP) Pulse Ox O2 Delivery O2 Flow Rate FiO2 06/09/17 12:41 78 16 169/65 (99) 100 Room Air 06/09/17 11:04 99.2 Orders Orders Electrocardiogram (06/09/17 11:20) Complete Blood Count With Diff (06/09/17 11:20) Comprehensive Metabolic Panel (06/09/17 11:20) Magnesium (Mg) (06/09/17 11:20) Ckmb (Isoenzyme) Profile (06/09/17 11:20) Troponin I (06/09/17 11:20) Act Partial Throm Time (Ptt) (06/09/17 11:20) Prothrombin Time / Inr (Pt) (06/09/17 11:20) Urinalysis - C+S If Indicated (06/09/17 11:20) Ct Brain W/O Iv Contrast(Rout) (06/09/17 11:20) Blood Glucose (06/09/17 11:20) Ecg Monitoring (06/09/17 11:20) Iv Access Insert/Monitor (06/09/17 11:20) Oximetry (06/09/17 11:20) Sodium Chloride 0.9% Flush (Ns Flush) (06/09/17 11:30) Hip, Uni(Ap&Lat) W Ap Pelvis (06/09/17 11:20) Morphine Inj (Morphine Inj) (06/09/17 12:00) Tetanus/Diphtheria Tox Adult (Tetanus/Di (06/09/17 12:15) Cath For Specimen (06/09/17 13:16) Ed Discharge Order (06/09/17 13:55) Labs Laboratory Tests Test 06/09/17 11:50 06/09/17 13:25 White Blood Count 6.5 TH/MM3 Red Blood Count 3.88 MIL/MM3 Hemoglobin 9.9 GM/DL Hematocrit 30.8 % Mean Corpuscular Volume 79.2 FL Mean Corpuscular Hemoglobin 25.5 PG Mean Corpuscular Hemoglobin Concent 32.2 % Red Cell Distribution Width 15.6 % Platelet Count 194 TH/MM3 Mean Platelet Volume 8.5 FL Neutrophils (%) (Auto) 66.4 % Lymphocytes (%) (Auto) 18.7 % Monocytes (%) (Auto) 9.3 % Eosinophils (%) (Auto) 4.8 % Basophils (%) (Auto) 0.8 % Neutrophils # (Auto) 4.3 TH/MM3 Lymphocytes # (Auto) 1.2 TH/MM3 Monocytes # (Auto) 0.6 TH/MM3 Eosinophils # (Auto) 0.3 TH/MM3 Basophils # (Auto) 0.1 TH/MM3 CBC Comment DIFF FINAL Differential Comment Prothrombin Time 10.7 SEC Prothromb Time International Ratio 1.1 RATIO Activated Partial Thromboplast Time 24.7 SEC Blood Urea Nitrogen 15 MG/DL Creatinine 0.96 MG/DL Random Glucose 199 MG/DL Total Protein 7.2 GM/DL Albumin 3.3 GM/DL Calcium Level 8.7 MG/DL Magnesium Level 1.6 MG/DL Alkaline Phosphatase 96 U/L Aspartate Amino Transf (AST/SGOT) 21 U/L Alanine Aminotransferase (ALT/SGPT) 17 U/L Total Bilirubin 0.3 MG/DL Sodium Level 136 MEQ/L Potassium Level 3.7 MEQ/L Chloride Level 101 MEQ/L Carbon Dioxide Level 25.7 MEQ/L Anion Gap 9 MEQ/L Estimat Glomerular Filtration Rate 55 ML/MIN Total Creatine Kinase 88 U/L Troponin I LESS THAN 0.02 NG/ML Urine Color LIGHT-YELLOW Urine Turbidity CLEAR Urine pH 7.0 Urine Specific [place] 1.009 Urine Protein NEG mg/dL Urine Glucose (UA) NEG mg/dL Urine Ketones NEG mg/dL Urine Occult Blood NEG Urine Nitrite NEG Urine Bilirubin NEG Urine Urobilinogen LESS THAN 2.0 MG/DL Urine Leukocyte Esterase NEG Urine Squamous Epithelial Cells <1 /hpf Urine Mucus FEW /lpf Microscopic Urinalysis Comment CATH-CULT NOT IND MDM Medical Decision Making Medical Screen Exam Complete: Yes Emergency Medical Condition: Yes Differential Diagnosis Differential diagnoses include but not limited to syncope, electrolyte abnormality, mechanical fall, coronary event, arrhythmia Narrative Course 87-year-old female presents emergency department for evaluation after she fell at her long term facility earlier today. Abrasion and hematoma noted to the occipital portion of skull. CT of head ordered and pending. CT is the shows scalp hematoma with possible foreign bodies. No skull fracture. No acute brain findings. Wound care performed to the abrasion. No foreign bodies were seen. Left hip pain post fall. Hx of right hip fracture in 2016. X-ray of the left hip ordered and pending. Left hip is negative for fractures shows mild degenerative changes. Tetanus was updated. CBC, CMP, Mag, Trop, CK, PT/INR, UA ordered and pending. No acute abnormality noted on blood work. Patient is given 2mg of morphine for pain management. Patient ambulated in the payan prior to discharge. Patient discharged back to her nursing facility with a transportation service. Instructed to return to the emergency department with any worsening condition but otherwise follow up with primary care. Last Impressions Hip and Pelvis X-Ray 06/09/17 1120 Signed Impressions: Service Date/Time: Friday, June 09, 2017 11:33 - CONCLUSION: Mild degenerative changes in left hip. No fracture seen. Prior surgery to the right hip with 3 intact femoral neck nails. Leroy Stinson MD Head CT 06/09/17 1120 Signed Impressions: Service Date/Time: Friday, June 09, 2017 12:32 - CONCLUSION: 1. Large left parieto-occipital scalp hematoma with possible foreign bodies. No skull fracture seen. 2. No acute findings in the brain. Stable moderately severe atrophy and ischemic demyelination of the white matter. Leroy Stinson MD Diagnosis Primary Impression: Scalp contusion Qualified Codes: S00.03XA - Contusion of scalp, initial encounter Additional Impression: Fall Qualified Codes: W19.XXXA - Unspecified fall, initial encounter Referrals: Primary Care Physician Patient Instructions: Fall Prevention for Older Adults (DC), General Instructions, Hematoma (ED) Additional Instructions: Please return to emergency department if your symptoms return or worsen. Follow up with your primary care provider. Med/Other Pt SpecificInfo: Prescription(s) given Disposition: 01 DISCHARGE HOME Condition: Stable Elida Ramírez Jun 09, 2017 11:35
[2017-06-09] MEDS ORDERED: MORPHINE SULFATE 4 MG/ML INJ IV PUSH ONE (12:00)
[2017-06-09] MEDS ORDERED: CRAN1260 PO (12:03)
[2017-06-09] MEDS ORDERED: EYE HEALTH PO (12:03)
[2017-06-09] MEDS ORDERED: ANTI2TAB10 PO (12:03)
[2017-06-09] MEDS ORDERED: ZOFR4TAB PO (12:03)
[2017-06-09] MEDS ORDERED: LUTEIN PO (12:03)
[2017-06-09] MEDS ORDERED: MELA3TAB52 PO (12:03)
[2017-06-09] MEDS ORDERED: GLIP5 PO (12:03)
[2017-06-09] MEDS ORDERED: MI-A80CH CHEW (12:03)
[2017-06-09] MEDS ORDERED: CLAR10TA7 PO (12:03)
--- NOTE | 2017-06-09 12:11 | RADRPT ---
EXAM DATE/TIME: 06/09/2017 11:33 [facility] COMPARISON: No previous studies available for comparison. INDICATIONS : Fall today. MEDICAL HISTORY : None. SURGICAL HISTORY : Right hip pinning. ENCOUNTER: Initial ACUITY: 1 day PAIN SCORE: 10/10 LOCATION: Left Hip FINDINGS: Moderate osteopenia. Right hip surgery with 3 femoral neck nails. The left hip is grossly intact with preserved primary and secondary trabecular pattern. The bony acetabulum has intact. Vascular calcifi cations in the proximal thigh. CONCLUSION: Mild degenerative changes in left hip. No fracture seen. Prior surgery to the right hip with 3 intact femoral neck nails. Leroy Stinson MD on June 09, 2017 at 12:08 Board Certified Radiologist. This report was verified electronically.
[2017-06-09] MEDS ORDERED: TETANUS/DIPHTHERIA TOXOID ADULT 0.5 ML VIAL IM ONE (12:15)
[2017-06-09 12:30] LABS: AUTOMATED NEUTROPHIL # 4.3 TH/MM3 (1.8-7.7); BASOPHIL # 0.1 TH/MM3 (0-0.2); BASOPHIL % 0.8 % (0.0-2.0); EOSINOPHIL # 0.3 TH/MM3 (0-0.4); EOSINOPHIL % 4.8 % (0.0-4.0); HEMATOCRIT 30.8 % (35.0-46.0); HEMO FLAGS DIFF FINAL; LYMPH % 18.7 % (9.0-44.0); LYMPHOCYTE # 1.2 TH/MM3 (1.0-4.8); MEAN CELL VOLUME 79.2 FL (80.0-100.0); MEAN CORPUSCULAR HEMOGLOBIN 25.5 PG (27.0-34.0); MEAN CORPUSCULAR HGB CONC 32.2 % (32.0-36.0); MONO % 9.3 % (0.0-8.0); NEUT % 66.4 % (16.0-70.0); PLATELET COUNT 194 TH/MM3 (150-450); RED BLOOD COUNT 3.88 MIL/MM3 (4.00-5.30); RED CELL DISTRIBUTION WIDTH 15.6 % (11.6-17.2); WHITE BLOOD COUNT 6.5 TH/MM3 (4.0-11.0)
[2017-06-09 12:41] VITALS: BP 169/65; PULSE 78; RESP 16; O2SAT 100
[2017-06-09 12:43] LABS: ANION GAP 9 MEQ/L (5-15); AST (GOT) 21 U/L (15-37); BICARBONATE 25.7 MEQ/L (21.0-32.0); BLOOD UREA NITROGEN 15 MG/DL (7-18); CHLORIDE 101 MEQ/L (98-107); GLOMERULAR FILTRATION RATE 55 ML/MIN (>89); MAGNESIUM 1.6 MG/DL (1.5-2.5); POTASSIUM 3.7 MEQ/L (3.5-5.1); SODIUM (NA) 136 MEQ/L (136-145)
[2017-06-09 12:44] LABS: ALT (GPT) 17 U/L (10-53); APTT (PATIENT) 24.7 SEC (24.3-30.1); INTERNATIONAL NORMALIZED RATIO 1.1 RATIO; PROTHROMBIN TIME - PATIENT 10.7 SEC (9.8-11.6)
[2017-06-09 12:47] LABS: ALKALINE PHOSPHATASE 96 U/L (45-117); TOTAL BILIRUBIN ADULT 0.3 MG/DL (0.2-1.0)
--- NOTE | 2017-06-09 12:51 | RADRPT ---
EXAM DATE/TIME: 06/09/2017 12:32 [facility] COMPARISON: CT BRAIN W/O CONTRAST, December 30, 2016, 18:07. INDICATIONS : Fall today hit back of head RADIATION DOSE: 28.69 CTDIvol (mGy) MEDICAL HISTORY : Diabetes SURGICAL HISTORY : Appendectomy. Cholecystectomy.Hysterectomy. ENCOUNTER: Initial ACUITY: 1 day PAIN SCALE: 6/10 LOCATION: cranial TECHNIQUE: Multiple contiguous axial images were obtained of the head. Using automated exposure control and adj ustment of the mA and/or kV according to patient size, radiation dose was kept as low as reasonably a chievable to obtain optimal diagnostic quality images. DICOM format image data is available electro nically for review and comparison. FINDINGS: CEREBRUM: The ventricles, sulci, and basal cisterns are prominent characteristic of severe central and cortical atrophy, very similar to prior examination in December 2016. Physiologic calcifications in the basal cecelia glia. There is good macias-white matter differentiation and there is persistent, stable, decreased atte nuation throughout the supratentorial white matter characteristic of diffuse ischemic change. No evid ence of acute hemorrhage. No extra-axial fluid or blood collections. POSTERIOR FOSSA: The cerebellum and brainstem are intact. The 4th ventricle is midline. The cerebellopontine angle i s unremarkable. EXTRACRANIAL: The visualized portion of the orbits is intact. SKULL: There is a large left parieto-occipital scalp hematoma measuring up to 1.9 cm. There are multiple thi n linear opacities within the hematoma suggesting possible radiopaque foreign bodies. The calvaria is intact. No evidence of skull fracture. CONCLUSION: 1. Large left parieto-occipital scalp hematoma with possible foreign bodies. No skull fracture seen. 2. No acute findings in the brain. Stable moderately severe atrophy and ischemic demyelination of t he white matter. Leroy Stinson MD on June 09, 2017 at 12:47 Board Certified Radiologist. This report was verified electronically.
[2017-06-09 12:54] LABS: CREATINE KINASE 88 U/L (26-192)
[2017-06-09 13:47] LABS: BLOOD, URINE NEG (NEG); COMMENT (UR) CATH-CULT NOT IND; CULTURE IF INDICATED CATH CULTURE NOT IND; GLUCOSE,URINE NEG (NEG); KETONE, URINE NEG (NEG); MUCUS URINE FEW /lpf (OCC); NITRITE,URINE NEG (NEG); SQUAMOUS EPITHELIAL CELL URINE <1 /hpf (0-5); URINE COLOR LIGHT-YELLOW (YELLW/STRAW)
[2017-06-09 16:35] VITALS: BP 161/70
--- NOTE | 2017-06-09 22:13 | EKG ---
Date Performed: 06/09/2017 Time Performed: 11:12:40 PTAGE: 87 years EKG: Sinus rhythm ABNORMAL RHYTHM ECG PREVIOUS TRACING : 06/09/2017 10.44 DOCTOR: Trinidad Florse Interpretating Date/Time 06/09/2017 22:12:30
== END 2017-06-09 16:35 | disposition home or self-care (01) ==
LOC: NEPC 10:54
DX: S00.03XA Contusion of scalp, initial encounter (principal); M16.12 Unilateral primary osteoarthritis, left hip; R94.31 Abnormal electrocardiogram [ECG] [EKG]; E11.9 Type 2 diabetes mellitus without complications; I10 Essential (primary) hypertension; W18.00XA Striking against unspecified object with subsequent fall, initial encounter; Y92.129 Unspecified place in nursing home as the place of occurrence of the external cause; Z79.82 Long term (current) use of aspirin; Z79.899 Other long term (current) drug therapy
CPT/HCPCS: 70450; 73502; 80053; 81001; 82550; 83735; 84484; 85025; 85610; 85730; 90714; 93005; 96372; 96374; 99285; J2270

== ENCOUNTER 2017-07-09 13:15 | Emergency (ER) | payer BC ==
[~2017-07-09] VITALS: Ht 167.6 cm; Wt 60.0 kg
[~2017-07-09 13:15] MED LIST changes: -ANTI1CAP PO; +ANTI2TAB10 PO; +CLAR10TA7 PO; +CRAN1260 PO; -CRAN500C2 PO; +EYE HEALTH PO; +GLIP5 PO; +LUTEIN PO; +MELA3TAB52 PO; +MI-A80CH CHEW; -NITR100C4 PO; +ZOFR4TAB PO; -[UNRECOGNIZED DRUG - OTHER] CHEW
[2017-07-09 13:29] VITALS: BP 132/62; PULSE 98; RESP 14; TEMP 98.8; O2SAT 98
[2017-07-09 17:49] LABS: AUTOMATED NEUTROPHIL # 7.2 TH/MM3 (1.8-7.7); BASOPHIL % 0.4 % (0.0-2.0); EOSINOPHIL # 0.3 TH/MM3 (0-0.4); EOSINOPHIL % 3.1 % (0.0-4.0); HEMATOCRIT 27.6 % (35.0-46.0); HEMOGLOBIN 9.4 GM/DL (11.6-15.3); LYMPHOCYTE # 1.1 TH/MM3 (1.0-4.8); MEAN CORPUSCULAR HEMOGLOBIN 26.9 PG (27.0-34.0); MEAN CORPUSCULAR HGB CONC 34.1 % (32.0-36.0); MEAN PLATELET VOLUME 8.6 FL (7.0-11.0); MONO % 7.2 % (0.0-8.0); MONOCYTE # 0.7 TH/MM3 (0-0.9); NEUT % 77.3 % (16.0-70.0); PLATELET COUNT 185 TH/MM3 (150-450); RED BLOOD COUNT 3.49 MIL/MM3 (4.00-5.30); RED CELL DISTRIBUTION WIDTH 15.6 % (11.6-17.2); WHITE BLOOD COUNT 9.3 TH/MM3 (4.0-11.0)
[2017-07-09] MEDS ORDERED: SODIUM CHLOR 0.9% 250 ML INJ 250 ML IV ONE (18:00)
[2017-07-09] MEDS ORDERED: SODIUM CHLORIDE 0.9% FLUSH 10 ML FLUSH IV FLUSH PRN (18:00)
[2017-07-09 18:04] VITALS: BP 160/70; PULSE 81; RESP 16; O2SAT 96
--- NOTE | 2017-07-09 18:05 | PD ---
HPI Chief Complaint: General Weakness Time Seen by Provider: 17:57 Travel History International Travel<30 days: No Contact w/Intl Traveler<30days: No Traveled to known affect area: No History of Present Illness HPI The patient is a 87-year-old female who presents to the emergency department from the long-term for generalized weakness. According to the long-term the patient pointed generalized weakness earlier today. However, the patient states that she has been "sick "since she went to the long-term. She states she's had a runny nose and occasionally goes over her lip, then will suffer from nasal congestion. She did complain of chest pain earlier today that was sharp, left-sided, and resolved on its own. She denies any current chest pain, shortness of breath, nausea, vomiting, diarrhea, or abdominal pain. She denies any dysuria. She denies any trauma to the head recently, but did fall to begin in June was seen in the emergency department where she had a CT the brain which was negative. The patient does have a history of early dementia, but answers most questions appropriately. PFSH Past Medical History High Cholesterol: Yes Diabetes: Yes Diminished Hearing: Yes Hypertension: Yes Menopausal: Yes Past Surgical History Appendectomy: Yes Cholecystectomy: Yes Hysterectomy: Yes Tonsillectomy: Yes Social History Alcohol Use: No Tobacco Use: No Substance Use: No Allergies-Medications (Allergen,Severity, Reaction): Coded Allergies: Sulfa (Sulfonamide Antibiotics) (Unverified Allergy, Unknown, 06/09/17) Reported Meds & Prescriptions Reported Meds & Active Scripts Active Losartan (Losartan Potassium) 50 Mg Tab 50 Mg PO DAILY Reported Zofran (Ondansetron HCl) 4 Mg Tab 4 Mg PO Q6HR PRN Mi-Acid Gas Relief (Simethicone) 80 Mg Chw 80 Mg CHEW QID PRN Anti-Diarrheal (Loperamide HCl) 2 Mg Tab 2 Mg PO Q6HR PRN Cranberry Fruit Concentrate (Cranberry (Vaccinium Macrocarpon)) 12,600 Mg-20 Mg Cap 25,000 Mg PO DAILY Melatonin 3 Mg Tab 3 Mg PO HS Claritin (Loratadine) 10 Mg Tablet 10 Mg PO DAILY Glucotrol (Glipizide) 5 Mg Tab 2.5 Mg PO BIDAC Take 30 minutes before a meal [Eye Health +Lutein] 1 Tab PO DAILY C 500 (Ascorbic Acid) 500 Mg Tab 500 Mg PO BID Methenamine Hippurate 1 Gm Tab 500 Mg PO BID Aspirin EC (Aspirin) 81 Mg Tabdr 81 Mg PO HS APAP Extra Strength (Acetaminophen) 500 Mg Tab 500 Mg PO HS Colace Clear (Docusate Sodium) 50 Mg Cap 50 Mg PO DAILY PRN Omeprazole 20 Mg Tab 20 Mg PO DAILY Aricept (Donepezil HCl) 10 Mg Tablet 10 Mg PO DAILY Calcium 600+D 200 (Calcium Carbonate-Vitamin D) 600-200 Mg-Unit Tab 1 Tab PO DAILY Atorvastatin (Atorvastatin Calcium) 40 Mg Tab 40 Mg PO HS Review of Systems Except as stated in HPI: all other systems reviewed are Neg General / Constitutional: No: Fever HENT: Positive: Congestion Cardiovascular: Positive: Chest Pain or Discomfort Respiratory: No: Shortness of Breath Gastrointestinal: No: Nausea, Vomiting, Diarrhea, Abdominal Pain Genitourinary: No: Dysuria Musculoskeletal: Positive: Weakness Neurologic: No: Dizziness, Change in Mentation Physical Exam Narrative GENERAL: Awake, alert, pleasant 87-year-old female who appears her stated age and is in no acute respiratory distress. SKIN: Focused skin assessment warm/dry. HEAD: Atraumatic. Normocephalic. EYES: Pupils equal and round. No scleral icterus. No injection or drainage. ENT: No nasal bleeding or discharge. Slightly dry mucous membranes. NECK: Trachea midline. No JVD. CARDIOVASCULAR: Regular rate and rhythm. No murmur appreciated. RESPIRATORY: No accessory muscle use. Clear to auscultation. Breath sounds equal bilaterally. GASTROINTESTINAL: Abdomen soft, non-tender, nondistended. Well-healed right upper quadrant scar. Minimal tenderness right lower quadrant. MUSCULOSKELETAL: No obvious deformities. No clubbing. No cyanosis. No edema. NEUROLOGICAL: Awake and alert. No obvious cranial nerve deficits. Motor grossly within normal limits. Normal speech. Oriented to place, month, year, and date of . PSYCHIATRIC: Appropriate mood and affect; insight and judgment normal. Data Data Last Documented VS Vital Signs Date Time Temp Pulse Resp B/P (MAP) Pulse Ox O2 Delivery O2 Flow Rate FiO2 07/09/17 20:37 07/09/17 20:36 80 18 100 Room Air 07/09/17 13:29 98.8 Orders Orders Urinalysis - C+S If Indicated (07/09/17 14:27) Complete Blood Count With Diff (07/09/17 14:27) Electrocardiogram (07/09/17 17:58) Comprehensive Metabolic Panel (07/09/17 17:58) Creatine Kinase (Cpk) (07/09/17 17:58) Troponin I (07/09/17 17:58) Thyroid Stimulating Hormone (07/09/17 17:58) Chest, Single Ap (07/09/17 17:58) Blood Glucose (07/09/17 17:58) Ecg Monitoring (07/09/17 17:58) Iv Access Insert/Monitor (07/09/17 17:58) Cath For Specimen (07/09/17 17:58) Oximetry (07/09/17 17:58) Sodium Chloride 0.9% Flush (Ns Flush) (07/09/17 18:00) Sodium Chlor 0.9% 250 Ml Inj (Ns 250 Ml (07/09/17 18:00) Influenzae A/B Antigen (07/09/17 17:58) Lactic Acid (07/09/17 17:58) Ct Abd/Pel W/O Iv Contrast (07/09/17 ) Cath For Specimen (07/09/17 19:05) Ed Discharge Order (07/09/17 20:09) Labs Laboratory Tests Test 07/09/17 17:00 07/09/17 18:15 07/09/17 18:16 07/09/17 19:20 White Blood Count 9.3 TH/MM3 Red Blood Count 3.49 MIL/MM3 Hemoglobin 9.4 GM/DL Hematocrit 27.6 % Mean Corpuscular Volume 79.0 FL Mean Corpuscular Hemoglobin 26.9 PG Mean Corpuscular Hemoglobin Concent 34.1 % Red Cell Distribution Width 15.6 % Platelet Count 185 TH/MM3 Mean Platelet Volume 8.6 FL Neutrophils (%) (Auto) 77.3 % Lymphocytes (%) (Auto) 12.0 % Monocytes (%) (Auto) 7.2 % Eosinophils (%) (Auto) 3.1 % Basophils (%) (Auto) 0.4 % Neutrophils # (Auto) 7.2 TH/MM3 Lymphocytes # (Auto) 1.1 TH/MM3 Monocytes # (Auto) 0.7 TH/MM3 Eosinophils # (Auto) 0.3 TH/MM3 Basophils # (Auto) 0.0 TH/MM3 CBC Comment DIFF FINAL Differential Comment Lactic Acid Level 1.0 mmol/L Blood Urea Nitrogen 13 MG/DL Creatinine 0.78 MG/DL Random Glucose 127 MG/DL Total Protein 7.2 GM/DL Albumin 3.1 GM/DL Calcium Level 8.7 MG/DL Alkaline Phosphatase 88 U/L Aspartate Amino Transf (AST/SGOT) 19 U/L Alanine Aminotransferase (ALT/SGPT) 12 U/L Total Bilirubin 0.6 MG/DL Sodium Level 134 MEQ/L Potassium Level 3.5 MEQ/L Chloride Level 97 MEQ/L Carbon Dioxide Level 27.3 MEQ/L Anion Gap 10 MEQ/L Estimat Glomerular Filtration Rate 70 ML/MIN Total Creatine Kinase 157 U/L Troponin I LESS THAN 0.02 NG/ML Thyroid Stimulating Hormone 3rd Gen 1.210 uIU/ML Urine Color YELLOW Urine Turbidity HAZY Urine pH 6.5 Urine Specific [place] 1.013 Urine Protein TRACE mg/dL Urine Glucose (UA) NEG mg/dL Urine Ketones NEG mg/dL Urine Occult Blood NEG Urine Nitrite NEG Urine Bilirubin NEG Urine Urobilinogen LESS THAN 2.0 MG/DL Urine Leukocyte Esterase NEG Urine RBC 2 /hpf Urine WBC 4 /hpf Urine Squamous Epithelial Cells 5 /hpf Urine Bacteria RARE /hpf Microscopic Urinalysis Comment CULT NOT INDICATED MDM Medical Decision Making Medical Screen Exam Complete: Yes Emergency Medical Condition: Yes Medical Record Reviewed: Yes Interpretation(s) EKG reveals sinus arrhythmia. Moderate intraventricular conduction delay with QRS of 115 ms. Nonspecific T wave changes. Differential Diagnosis Differential diagnosis includes UTI, subdural hemorrhage, pneumonia, influenza, hyponatremia, cystitis, diverticulitis, URI, bronchitis, dehydration, generalized weakness. Narrative Course IV was established, labs are drawn and sent, the patient was placed on cardiac telemetry monitoring and continuous pulse oximetry monitoring. EKG was ordered and interpreted. Chest x-ray was obtained. CT the abdomen and pelvis was performed for right lower quadrant abdominal pain. The patient was signed out to the oncoming physician at 7 PM. If labs and CT are unremarkable the patient is stable for discharge back to the long-term. Condition: Stable Delbert Bradford MD Jul 09, 2017 18:05
[2017-07-09 18:22] VITALS: O2SAT 96
--- NOTE | 2017-07-09 18:22 | RADRPT ---
EXAM DATE/TIME: 07/09/2017 18:09 [facility] COMPARISON: No previous studies available for comparison. INDICATIONS : Cough. MEDICAL HISTORY : Hypertension. Diabetes mellitus type II. SURGICAL HISTORY : Appendectomy. Cholecystectomy. ENCOUNTER: Initial ACUITY: 1 day PAIN SCORE: 0/10 LOCATION: Bilateral chest FINDINGS: Cardiomegaly. Mild interstitial prominence. No consolidation or effusion. Aortic calcification. [place] us structures are intact. CONCLUSION: Very mild interstitial prominence without consolidation or effusion. Nick Cabrales MD on July 09, 2017 at 18:19 Board Certified Radiologist. This report was verified electronically.
[2017-07-09 18:51] LABS: ALT (GPT) 12 U/L (10-53)
[2017-07-09 19:01] LABS: ALKALINE PHOSPHATASE 88 U/L (45-117); TOTAL BILIRUBIN ADULT 0.6 MG/DL (0.2-1.0); TOTAL PROTEIN 7.2 GM/DL (6.4-8.2); TROPONIN I LESS THAN 0.02 NG/ML (0.02-0.05)
--- NOTE | 2017-07-09 19:05 | RADRPT ---
EXAM DATE/TIME: 07/09/2017 18:52 [facility] COMPARISON: CT ABDOMEN & PELVIS W CONTRAST, December 30, 2016, 18:06. INDICATIONS : Generalized weakness. ORAL CONTRAST: No oral contrast ingested. RADIATION DOSE: 13.45 CTDIvol (mGy) MEDICAL HISTORY : Hypertension. Diabetes mellitus type 2. SURGICAL HISTORY : Cholecystectomy. Appendectomy.Hysterectomy.Right hip fracture repair ENCOUNTER: Initial ACUITY: 2 days PAIN SCALE: 0/10 LOCATION: abdomen. TECHNIQUE: Volumetric scanning of the abdomen and pelvis was performed. Using automated exposure control and ad justment of the mA and/or kV according to patient size, radiation dose was kept as low as reasonably achievable to obtain optimal diagnostic quality images. DICOM format image data is available electro nically for review and comparison. FINDINGS: Patient is status post hysterectomy, cholecystectomy, appendectomy and screw fixation of right proxim al femur. There is a remote compression deformity of mild severity at the L1 vertebral body. There is levoscoliosis. Small pericardial effusion. Liver, spleen, pancreas, adrenals, left kidney and focal scarring of the right mid pole kidney posteriorly. Diffuse atherosclerotic calcification of the aorta and iliac vessels are urinary bladder are unremarkable. No evidence of bowel obstruction. No adenopa thy. There are small bilateral effusions. Degenerative changes of the spine are seen. CONCLUSION: Small bilateral pleural effusions. Remote L1 compression fracture. Diffuse atherosclerosis. Nick Cabrales MD on July 09, 2017 at 19:01 Board Certified Radiologist. This report was verified electronically.
[2017-07-09 19:06] LABS: ALBUMIN 3.1 GM/DL (3.4-5.0); AST (GOT) 19 U/L (15-37); BICARBONATE 27.3 MEQ/L (21.0-32.0); BLOOD UREA NITROGEN 13 MG/DL (7-18); CALCIUM 8.7 MG/DL (8.5-10.1); CHLORIDE 97 MEQ/L (98-107); CREATININE 0.78 MG/DL (0.50-1.00); GLOMERULAR FILTRATION RATE 70 ML/MIN (>89); GLUCOSE,RANDOM 127 MG/DL (74-106); SODIUM (NA) 134 MEQ/L (136-145)
[2017-07-09 19:55] LABS: BACTERIA, URINE RARE /hpf; BILIRUBIN, URINE NEG (NEG); BLOOD, URINE NEG (NEG); GLUCOSE,URINE NEG (NEG); KETONE, URINE NEG (NEG); NITRITE,URINE NEG (NEG); PH, URINE 6.5 (5.0-8.5); SQUAMOUS EPITHELIAL CELL URINE 5 /hpf (0-5); URINE COLOR YELLOW (YELLW/STRAW); URINE LEUKOCYTE ESTERASE NEG (NEG)
--- NOTE | 2017-07-09 19:56 | PD ---
Data Data Last Documented VS Vital Signs Date Time Temp Pulse Resp B/P (MAP) Pulse Ox O2 Delivery O2 Flow Rate FiO2 07/09/17 18:22 96 07/09/17 18:04 81 16 Room Air 07/09/17 13:29 98.8 Orders Orders Urinalysis - C+S If Indicated (07/09/17 14:27) Complete Blood Count With Diff (07/09/17 14:27) Comprehensive Metabolic Panel (07/09/17 14:27) Electrocardiogram (07/09/17 17:58) Comprehensive Metabolic Panel (07/09/17 17:58) Creatine Kinase (Cpk) (07/09/17 17:58) Troponin I (07/09/17 17:58) Thyroid Stimulating Hormone (07/09/17 17:58) Chest, Single Ap (07/09/17 17:58) Blood Glucose (07/09/17 17:58) Ecg Monitoring (07/09/17 17:58) Iv Access Insert/Monitor (07/09/17 17:58) Cath For Specimen (07/09/17 17:58) Oximetry (07/09/17 17:58) Sodium Chloride 0.9% Flush (Ns Flush) (07/09/17 18:00) Sodium Chlor 0.9% 250 Ml Inj (Ns 250 Ml (07/09/17 18:00) Influenzae A/B Antigen (07/09/17 17:58) Lactic Acid (07/09/17 17:58) Ct Abd/Pel W/O Iv Contrast (07/09/17 ) Cath For Specimen (07/09/17 19:05) Labs Laboratory Tests Test 07/09/17 17:00 07/09/17 18:15 07/09/17 18:16 07/09/17 19:20 White Blood Count 9.3 TH/MM3 Red Blood Count 3.49 MIL/MM3 Hemoglobin 9.4 GM/DL Hematocrit 27.6 % Mean Corpuscular Volume 79.0 FL Mean Corpuscular Hemoglobin 26.9 PG Mean Corpuscular Hemoglobin Concent 34.1 % Red Cell Distribution Width 15.6 % Platelet Count 185 TH/MM3 Mean Platelet Volume 8.6 FL Neutrophils (%) (Auto) 77.3 % Lymphocytes (%) (Auto) 12.0 % Monocytes (%) (Auto) 7.2 % Eosinophils (%) (Auto) 3.1 % Basophils (%) (Auto) 0.4 % Neutrophils # (Auto) 7.2 TH/MM3 Lymphocytes # (Auto) 1.1 TH/MM3 Monocytes # (Auto) 0.7 TH/MM3 Eosinophils # (Auto) 0.3 TH/MM3 Basophils # (Auto) 0.0 TH/MM3 CBC Comment DIFF FINAL Differential Comment Lactic Acid Level 1.0 mmol/L Blood Urea Nitrogen 13 MG/DL Creatinine 0.78 MG/DL Random Glucose 127 MG/DL Total Protein 7.2 GM/DL Albumin 3.1 GM/DL Calcium Level 8.7 MG/DL Alkaline Phosphatase 88 U/L Aspartate Amino Transf (AST/SGOT) 19 U/L Alanine Aminotransferase (ALT/SGPT) 12 U/L Total Bilirubin 0.6 MG/DL Sodium Level 134 MEQ/L Potassium Level 3.5 MEQ/L Chloride Level 97 MEQ/L Carbon Dioxide Level 27.3 MEQ/L Anion Gap 10 MEQ/L Estimat Glomerular Filtration Rate 70 ML/MIN Total Creatine Kinase 157 U/L Troponin I LESS THAN 0.02 NG/ML Thyroid Stimulating Hormone 3rd Gen 1.210 uIU/ML Urine Color YELLOW Urine Turbidity HAZY Urine pH 6.5 Urine Specific [place] 1.013 Urine Protein TRACE mg/dL Urine Glucose (UA) NEG mg/dL Urine Ketones NEG mg/dL Urine Occult Blood NEG Urine Nitrite NEG Urine Bilirubin NEG Urine Urobilinogen LESS THAN 2.0 MG/DL Urine Leukocyte Esterase NEG Urine RBC 2 /hpf Urine WBC 4 /hpf Urine Squamous Epithelial Cells 5 /hpf Urine Bacteria RARE /hpf Microscopic Urinalysis Comment CULT NOT INDICATED MDM Supervised Visit with LIAM: No Narrative Course Patient was initially evaluated by the previous provider and sent out to me at the beginning of my shift pending CT of the abdomen and pelvis, labs, UA, and disposition. Briefly this is an 87-year-old female who was sent here from the group home for evaluation of generalized weakness, cough, runny nose, chest discomfort with coughing. On my exam she is resting comfortably and states she feels well and her daughter is at the bedside. Initial vital signs show heart rate 98, blood pressure 132/62, pulse ox 90% on room air, temp of 98.8F. CBC is remarkable for hemoglobin 9.4, hematocrit 27.6 which is around her baseline. CMP is essentially unremarkable. Cardec enzymes are negative. TSH is 1.21. UA is not suggestive of UTI. Chest x-ray shows very mild interstitial prominence without consolidation or effusion. CT abdomen pelvis: CONCLUSION: Small bilateral pleural effusions. Remote L1 compression fracture. Diffuse atherosclerosis. The patient and the patient's daughter were made aware of all findings. Again she is resting comfortably and has no complaints on my assessment. Daughter reports that the patient is currently on a 5 day course of antibiotics for a UTI that was diagnosed on . She cannot recall the name of the antibiotic. At this point she is stable for discharge home back to her group home with follow-up with her primary care physician this week. She was advised on when to return to the emergency department. She verbalizes understanding and agreement with plan. Diagnosis Primary Impression: Generalized weakness Referrals: Primary Care Physician 3 days Additional Instruction: Follow-up with your primary care physician this week. Return to the emergency department for worsening symptoms or any other concerns. Disposition: 01 DISCHARGE HOME Condition: Stable Viktor Bah MD Jul 09, 2017 19:56
[2017-07-09 20:36] VITALS: BP 157/68; PULSE 80; RESP 18; O2SAT 100
--- NOTE | 2017-07-10 22:48 | EKG ---
Date Performed: 07/09/2017 Time Performed: 18:15:35 PTAGE: 87 years EKG: Sinus rhythm WITH PACs MODERATE INTRAVENTRICULAR CONDUCTION DELAY NONSPECIFIC T-WAVE ABNORMALITY ABNORMAL RHYTHM ECG PREVIOUS TRACING : 06/09/2017 11.12 Compared to prior tracing no significant change DOCTOR: Trung Bland Interpretating Date/Time 07/10/2017 22:47:21
== END 2017-07-09 20:38 | disposition home or self-care (01) ==
LOC: NEDAMB 13:15 → NEPC 20:38
DX: R53.1 Weakness (principal); M48.56XA Collapsed vertebra, not elsewhere classified, lumbar region, initial encounter for fracture; J90 Pleural effusion, not elsewhere classified; I10 Essential (primary) hypertension; E78.00 Pure hypercholesterolemia, unspecified; E11.9 Type 2 diabetes mellitus without complications; R94.31 Abnormal electrocardiogram [ECG] [EKG]; F03.90 Unspecified dementia, unspecified severity, without behavioral disturbance, psychotic disturbance, mood disturbance, and anxiety; Z90.49 Acquired absence of other specified parts of digestive tract; Z88.2 Allergy status to sulfonamides; Z79.2 Long term (current) use of antibiotics; Z79.899 Other long term (current) drug therapy
CPT/HCPCS: 71045; 74176; 80053; 81001; 82550; 83605; 84443; 84484; 85025; 87804; 93005; 99285; J7050

== ENCOUNTER 2017-10-02 20:21 | Emergency (ER) | payer BC ==
[~2017-10-02] VITALS: Ht 152.4 cm; Wt 59.0 kg
[2017-10-02 20:30] VITALS: BP 157/70; PULSE 73; RESP 20; O2SAT 97
[2017-10-02] MEDS ORDERED: traMADol HCL 50 MG TAB PO ONE (20:45)
[2017-10-02] MEDS ORDERED: TRAM50TA PO (20:47)
[2017-10-02] MEDS ORDERED: IPRA0.06 EACH NARE (20:47)
--- NOTE | 2017-10-02 20:54 | PD ---
HPI Chief Complaint: Fall Time Seen by Provider: 20:36 Travel History International Travel<30 days: No Contact w/Intl Traveler<30days: No Traveled to known affect area: No History of Present Illness HPI Patient is an 87-year-old female presenting to the emergency department for evaluation after a mechanical fall. Patient reports that she was next to her bed, attempting to put on her pajamas when her right leg would not hold her up, this caused her to fall backwards, she grabbed onto the sheets of her bed and slid to the ground. She denies any head injury or loss of consciousness. Patient currently resides in a senior living facility. She presented complaining of right knee and right hip pain, she states this is chronic and not new for her. She states she was told she has arthritis. After the fall patient use her alert button to call the staff who helped her off of the floor in her bed. PFSH Past Medical History Hx Anticoagulant Therapy: Yes (Aspirin 81mg QHS) Arthritis: Yes Cardiovascular Problems: Yes (HTN on Losartan 50mg daily) High Cholesterol: Yes Diabetes: Yes (glipizide 2.5mg BIDAC) Patient Takes Glucophage: Yes Diminished Hearing: Yes (doesn't wear her hearing aides) GERD: Yes Hypertension: Yes ?: Not Menopausal: Yes Past Surgical History Appendectomy: Yes Cholecystectomy: Yes Hysterectomy: Yes Tonsillectomy: Yes Social History Alcohol Use: No Tobacco Use: No Substance Use: No Allergies-Medications (Allergen,Severity, Reaction): Coded Allergies: Penicillins (Verified Allergy, Unknown, 10/02/17) Sulfa (Sulfonamide Antibiotics) (Verified Allergy, Unknown, 10/02/17) Reported Meds & Prescriptions Reported Meds & Active Scripts Active Losartan (Losartan Potassium) 50 Mg Tab 50 Mg PO DAILY Reported Ipratropium Nasal 0.06% [place] 1 [place] EACH NARE TID Tramadol (Tramadol HCl) 50 Mg Tab 50 Mg PO BID PRN Zofran (Ondansetron HCl) 4 Mg Tab 4 Mg PO Q6HR PRN Mi-Acid Gas Relief (Simethicone) 80 Mg Chw 80 Mg CHEW QID PRN Anti-Diarrheal (Loperamide HCl) 2 Mg Tab 2 Mg PO Q6HR PRN Cranberry Fruit Concentrate (Cranberry (Vaccinium Macrocarpon)) 12,600 Mg-20 Mg Cap 25,000 Mg PO DAILY Melatonin 3 Mg Tab 3 Mg PO HS Claritin (Loratadine) 10 Mg Tablet 10 Mg PO DAILY Glucotrol (Glipizide) 5 Mg Tab 2.5 Mg PO BIDAC Take 30 minutes before a meal [Eye Health +Lutein] 1 Tab PO DAILY C 500 (Ascorbic Acid) 500 Mg Tab 500 Mg PO BID Methenamine Hippurate 1 Gm Tab 500 Mg PO BID Aspirin EC (Aspirin) 81 Mg Tabdr 81 Mg PO HS APAP Extra Strength (Acetaminophen) 500 Mg Tab 500 Mg PO HS Colace Clear (Docusate Sodium) 50 Mg Cap 50 Mg PO DAILY PRN Omeprazole 20 Mg Tab 20 Mg PO DAILY Aricept (Donepezil HCl) 10 Mg Tablet 10 Mg PO DAILY Calcium 600+D 200 (Calcium Carbonate-Vitamin D) 600-200 Mg-Unit Tab 1 Tab PO DAILY Atorvastatin (Atorvastatin Calcium) 40 Mg Tab 40 Mg PO HS Review of Systems Except as stated in HPI: all other systems reviewed are Neg General / Constitutional: No: Fever Eyes: No: Blurred Vision Cardiovascular: No: Chest Pain or Discomfort Respiratory: No: Shortness of Breath Gastrointestinal: No: Nausea Musculoskeletal: Positive: Myalgias, Arthralgias Neurologic: No: Weakness, Dizziness Physical Exam Narrative GENERAL: Well-developed, well-nourished, alert elderly female. Presenting in no acute distress. SKIN: Warm and dry. HEAD: Atraumatic. Normocephalic. EYES: Pupils equal and round. No scleral icterus. No injection or drainage. ENT: No nasal bleeding or discharge. Mucous membranes pink and moist. NECK: Trachea midline. No JVD. CARDIOVASCULAR: Regular rate and rhythm. RESPIRATORY: No accessory muscle use. Clear to auscultation. Breath sounds equal bilaterally. GASTROINTESTINAL: Abdomen soft, non-tender, nondistended. Hepatic and splenic margins not palpable. MUSCULOSKELETAL: Extremities without clubbing, cyanosis, or edema. No obvious deformities. NEUROLOGICAL: Awake and alert. No obvious cranial nerve deficits. Motor grossly within normal limits. Five out of 5 muscle strength in the arms and legs. Normal speech. PSYCHIATRIC: Appropriate mood and affect; insight and judgment normal. Data Data Last Documented VS Vital Signs Date Time Temp Pulse Resp B/P (MAP) Pulse Ox O2 Delivery O2 Flow Rate FiO2 10/02/17 21:27 98.1 10/02/17 20:30 73 20 157/70 (99) 97 Orders Orders Hip, Uni(Ap&Lat) W Ap Pelvis (10/02/17 ) Knee, Complete (4vws) (10/02/17 ) Tramadol (Ultram) (10/02/17 20:45) MDM Medical Decision Making Medical Screen Exam Complete: Yes Emergency Medical Condition: Yes Medical Record Reviewed: Yes Interpretation(s) Vital Signs Date Time Temp Pulse Resp B/P (MAP) Pulse Ox O2 Delivery O2 Flow Rate FiO2 10/02/17 21:27 98.1 10/02/17 20:30 73 20 157/70 (99) 97 Last Impressions Knee X-Ray 10/02/17 0000 Signed Impressions: Service Date/Time: Monday, October 02, 2017 20:55 - CONCLUSION: No acute bony findings Luis Cam MD Hip and Pelvis X-Ray 10/02/17 0000 Signed Impressions: Service Date/Time: Monday, October 02, 2017 20:52 - CONCLUSION: Previous fractures of the right hip with femoral head fracture and collapse. Complete loss of cartilage space. Luis Cam MD Vital Signs Date Time Temp Pulse Resp B/P (MAP) Pulse Ox O2 Delivery O2 Flow Rate FiO2 10/02/17 20:30 73 20 157/70 (99) 97 Differential Diagnosis Fracture versus sprain versus strain versus dislocation versus other Narrative Course Patient is an 87-year-old female that presented to the emergency department after a mechanical fall when she slid off the bed. Patient has no focal deficits on exam. No leg length discrepancy and she is neurovascularly intact. She reports a history of chronic right knee and hip pain, imaging ordered and pending. Patient will be given tramadol for pain. Imaging is negative, does show right hip was postsurgical changes and loss of cartilage. Findings were discussed with patient and her daughter. They were encouraged to follow-up with her primary doctor, return to emergency department any worsening symptoms. She will continue home medications as previously prescribed, she has tramadol and acetaminophen on her indication reconciliation list from the [facility]. She was encouraged to apply warm heat to the affected area and continue gentle range of motion exercises. They verbalized understanding of these instructions. Patient stable for discharge. Diagnosis Primary Impression: Fall Qualified Codes: W19.XXXA - Unspecified fall, initial encounter Additional Impressions: Right hip pain Arthritis Referrals: Primary Care Physician 3 days Patient Instructions: Arthritis (ED), Fall Prevention for Older Adults (DC), General Instructions Additional Instructions: Follow-up with your primary doctor Continue home medications as previously prescribed Return to emergency department for any new or worsening symptoms You may apply warm moist heat to the affected area Med/Other Pt SpecificInfo: No Change to Meds Disposition: 03 DISCHARGE TO SNF Condition: Stable Bing Carey Oct 02, 2017 20:53
--- NOTE | 2017-10-02 21:16 | RADRPT ---
EXAM DATE/TIME: 10/02/2017 20:52 [facility] COMPARISON: HIP RIGHT (AP&LAT 2/3VWS) W AP PELVIS, December 26, 2016, 10:02. CT ABDOMEN & PELVIS W/O CONTRAST, 2017, 18:52. INDICATIONS : Right hip pain for 1 month with no known injury MEDICAL HISTORY : Right hip fracture SURGICAL HISTORY : ORIF right hip ENCOUNTER: Initial ACUITY: 1 month PAIN SCORE: 8/10 LOCATION: Right entire hip FINDINGS: There is been previous pinning of the right hip. The right femoral head is fractured and collapsed wh ich is a chronic appearance. There has been interval complete or near-complete loss of cartilage spac e superiorly. The adjacent pelvis is grossly intact. Contralateral left hip is stable with mild arthr itic change. There are phleboliths and surgical sutures overlying the pelvis. Degenerative changes no massimo in the low lumbar spine. Vascular calcifications noted. CONCLUSION: Previous fractures of the right hip with femoral head fracture and collapse. Complete loss of cartila ge space. Luis Cam MD on October 02, 2017 at 21:12 Board Certified Radiologist. This report was verified electronically.
--- NOTE | 2017-10-02 21:17 | RADRPT ---
EXAM DATE/TIME: 10/02/2017 20:55 [facility] COMPARISON: No previous studies available for comparison. INDICATIONS : Right knee pain for 1 month with no known injury MEDICAL HISTORY : None. SURGICAL HISTORY : None. ENCOUNTER: Initial ACUITY: 1 month PAIN SCORE: 7/10 LOCATION: Right entire knee FINDINGS: Four view examination of the right knee demonstrates no evidence of fracture or dislocation. Bony mi neralization is normal. The articular surfaces are intact. The suprapatellar soft tissues have a no rmal configuration. Prominent vascular calcifications noted. Benign-appearing sclerotic density in th e distal femur may reflect bone infarcts. CONCLUSION: No acute bony findings Luis Cam MD on October 02, 2017 at 21:14 Board Certified Radiologist. This report was verified electronically.
[2017-10-02 21:27] VITALS: TEMP 98.1
== END 2017-10-02 22:45 ==
LOC: NEPC 20:21
DX: M25.551 Pain in right hip (principal); M19.90 Unspecified osteoarthritis, unspecified site; E11.9 Type 2 diabetes mellitus without complications; E78.00 Pure hypercholesterolemia, unspecified; K21.9 Gastro-esophageal reflux disease without esophagitis; I10 Essential (primary) hypertension; Z79.82 Long term (current) use of aspirin; Z79.84 Long term (current) use of oral hypoglycemic drugs
CPT/HCPCS: 73502; 73564; 99284

== ENCOUNTER 2017-12-24 06:39 | Emergency (ER) | payer BC ==
[~2017-12-24 06:39] MED LIST changes: +IPRA0.06 EACH NARE; +TRAM50TA PO
[2017-12-24 06:42] VITALS: BP 138/97; PULSE 84; RESP 15; TEMP 98.5; O2SAT 99
[2017-12-24] MEDS ORDERED: TETANUS/DIPHTHERIA TOXOID ADULT 0.5 ML VIAL IM ONE (07:15)
--- NOTE | 2017-12-24 07:42 | PD ---
HPI . Fall Chief Complaint: Fall Time Seen by Provider: 07:05 Travel History International Travel<30 days: No Contact w/Intl Traveler<30days: No Traveled to known affect area: No History of Present Illness HPI This patient lives in an assisted living facility. She reportedly fell out of bed this morning. She presented to us complaining with right elbow pain, right hip pain and a right covarrubias abrasion. Symptoms are mild. PFSH Past Medical History Hx Anticoagulant Therapy: Yes (Aspirin 81mg QHS) Arthritis: Yes Cardiovascular Problems: Yes (HTN on Losartan 50mg daily) High Cholesterol: Yes Diabetes: Yes (glipizide 2.5mg BIDAC) Patient Takes Glucophage: Yes Diminished Hearing: Yes (doesn't wear her hearing aides) GERD: Yes Hypertension: Yes Menopausal: Yes Past Surgical History Appendectomy: Yes Cholecystectomy: Yes Hysterectomy: Yes Tonsillectomy: Yes Social History Alcohol Use: No Tobacco Use: No Substance Use: No Allergies-Medications (Allergen,Severity, Reaction): Coded Allergies: Penicillins (Verified Allergy, Unknown, 12/24/17) Sulfa (Sulfonamide Antibiotics) (Verified Allergy, Unknown, 12/24/17) Reported Meds & Prescriptions Reported Meds & Active Scripts Active Losartan (Losartan Potassium) 50 Mg Tab 50 Mg PO DAILY Reported Ipratropium Nasal 0.06% [place] 1 [place] EACH NARE TID Tramadol (Tramadol HCl) 50 Mg Tab 50 Mg PO BID PRN Zofran (Ondansetron HCl) 4 Mg Tab 4 Mg PO Q6HR PRN Mi-Acid Gas Relief (Simethicone) 80 Mg Chw 80 Mg CHEW QID PRN Anti-Diarrheal (Loperamide HCl) 2 Mg Tab 2 Mg PO Q6HR PRN Cranberry Fruit Concentrate (Cranberry (Vaccinium Macrocarpon)) 12,600 Mg-20 Mg Cap 25,000 Mg PO DAILY Melatonin 3 Mg Tab 3 Mg PO HS Claritin (Loratadine) 10 Mg Tablet 10 Mg PO DAILY Glucotrol (Glipizide) 5 Mg Tab 2.5 Mg PO BIDAC Take 30 minutes before a meal [Eye Health +Lutein] 1 Tab PO DAILY C 500 (Ascorbic Acid) 500 Mg Tab 500 Mg PO BID Methenamine Hippurate 1 Gm Tab 500 Mg PO BID Aspirin EC (Aspirin) 81 Mg Tabdr 81 Mg PO HS APAP Extra Strength (Acetaminophen) 500 Mg Tab 500 Mg PO HS Colace Clear (Docusate Sodium) 50 Mg Cap 50 Mg PO DAILY PRN Omeprazole 20 Mg Tab 20 Mg PO DAILY Aricept (Donepezil HCl) 10 Mg Tablet 10 Mg PO DAILY Calcium 600+D 200 (Calcium Carbonate-Vitamin D) 600-200 Mg-Unit Tab 1 Tab PO DAILY Atorvastatin (Atorvastatin Calcium) 40 Mg Tab 40 Mg PO HS Review of Systems Except as stated in HPI: all other systems reviewed are Neg Physical Exam Narrative GENERAL: Awake and alert and in no acute distress. SKIN: Warm and dry. Normal color and turgor. There is an abrasion to the distal right covarrubias. HEAD: Normocephalic/atraumatic. EYES: Pupils are equal. Extraocular movements are intact. NECK: Normal range of motion. Supple. CARDIOVASCULAR: Regular rate and rhythm. RESPIRATORY: Nonlabored respirations. Normal sats. MUSCULOSKELETAL: She has full range of motion of her right elbow. I do not see any bruising or abrasions. The right hip is tender in the groin and over the greater trochanter. She has pain with logrolling of the hip. It is not shortened or malrotated. She also has some swelling of the right knee but it is not tender. She reportedly has arthritis in her knee. NEUROLOGICAL: A and O 3. Nonfocal. PSYCHIATRIC: Appropriate mood and affect. Data Data Last Documented VS Vital Signs Date Time Temp Pulse Resp B/P (MAP) Pulse Ox O2 Delivery O2 Flow Rate FiO2 12/24/17 06:42 98.5 84 15 138/97 (111) 99 Orders Orders Elbow, Complete (4 Vws) (12/24/17 07:06) Hip, Uni(Ap&Lat) W Ap Pelvis (12/24/17 07:06) Tetanus/Diphtheria Tox Adult (Tetanus/Di (12/24/17 07:15) MDM Medical Decision Making Medical Screen Exam Complete: Yes Emergency Medical Condition: Yes Differential Diagnosis Differential diagnosis of extremity trauma includes but is not limited to fracture, sprain or strain, dislocation, contusion Narrative Course This is a patient who lives in a [facility] who was sent to us for the evaluation of injury sustained when she fell trying to get out of bed this morning. She was specifically complaining with right elbow and right hip pain. She is moving the right elbow without difficulty and there are no external signs of trauma. The right hip does have tenderness and pain with logrolling. No shortening or malrotation. In addition, she has an abrasion of her right distal covarrubias. Tetanus is being updated. X-rays of the right elbow and right hip are pending. Last Impressions Hip and Pelvis X-Ray 12/24/17705 Signed Impressions: CONCLUSION: Stable chronic deformity involving the proximal right femur and femoral head. No acute fracture or joint dislocation. No significant change compared to the prior study. Elbow X-Ray 12/24/17705 Signed Impressions: CONCLUSION: No acute fracture or joint dislocation. The x-rays were independently reviewed by me. Diagnosis Primary Impression: Fall Qualified Codes: W19.XXXA - Unspecified fall, initial encounter Additional Impressions: Contusion of right hip Qualified Codes: S70.01XA - Contusion of right hip, initial encounter Skin tear of right lower leg without complication Qualified Codes: S81.811A - Laceration without foreign body, right lower leg, initial encounter Contusion of right elbow Qualified Codes: S50.01XA - Contusion of right elbow, initial encounter Patient Instructions: General Instructions, Hip Contusion (ED), Skin Tear (ED) Disposition: 01 DISCHARGE HOME Condition: Stable Namrata Ventura MD Dec 24, 2017 07:42
--- NOTE | 2017-12-24 08:08 | RADRPT ---
EXAM DATE: 12/24/2017 8:03 AM EDT AGE/SEX: 87 years / Female INDICATIONS: Evaluate right elbow for trauma, fell CLINICAL DATA: This is the patient's initial encounter. Patient reports that signs and symptoms have been present for 1 day and indicates a pain score of 0/10. MEDICAL/SURGICAL HISTORY: . Hypertension. Diabetes mellitus type 2. . Cholecystectomy. Appende ctomy.Hysterectomy.Right hip fracture repair COMPARISON: No prior exams available for comparison. FINDINGS: Bony structures are intact and in normal alignment. Joints are intact without dislocation or signifi cant arthropathy. Osseous density is osteopenic. Soft tissues are unremarkable. No radiopaque fore ign bodies seen. No evidence of joint effusion. CONCLUSION: No acute fracture or joint dislocation. Electronically signed by: Dilan English MD 12/24/2017 8:06 AM EDT
--- NOTE | 2017-12-24 08:11 | RADRPT ---
EXAM DATE: 12/24/2017 8:06 AM EDT AGE/SEX: 87 years / Female INDICATIONS: Hypertension. Diabetes mellitus type 2. CLINICAL DATA: This is the patient's initial encounter. Patient reports that signs and symptoms have been present for 1 day and indicates a pain score of 0/10. MEDICAL/SURGICAL HISTORY: . Cholecystectomy. Appendectomy.Hysterectomy.Right hip fracture repai r . COMPARISON: [facility] [place], HIP RIGHT (AP&LAT 2/3VWS) W AP PELVIS, 10/02/2017. . FINDINGS: Today's exam is compared to the prior study of 10/02/2017. There is stable chronic deformity involving the right femoral head. There are [address] in place which are unchanged in position. The hardware is grossly intact. There continues to be complete loss of the joint space especially al vy the superior margin. No acute fracture or joint dislocation is demonstrated. There are vascular c alcifications in the soft tissues consistent with peripheral vascular disease. No new or significant changes are seen compared to the prior examination. CONCLUSION: Stable chronic deformity involving the proximal right femur and femoral head. No acute fracture or joint dislocation. No significant change compared to the prior study. Electronically signed by: Dilan English MD 12/24/2017 8:10 AM EDT
[2017-12-24 10:01] VITALS: BP 143/69; PULSE 84; RESP 19; O2SAT 99
== END 2017-12-24 10:40 | disposition home or self-care (01) ==
LOC: NEPE 06:39
DX: S70.01XA Contusion of right hip, initial encounter (principal); S81.811A Laceration without foreign body, right lower leg, initial encounter; S50.01XA Contusion of right elbow, initial encounter; M19.90 Unspecified osteoarthritis, unspecified site; I10 Essential (primary) hypertension; E78.00 Pure hypercholesterolemia, unspecified; E11.9 Type 2 diabetes mellitus without complications; K21.9 Gastro-esophageal reflux disease without esophagitis; W06.XXXA Fall from bed, initial encounter; Z88.0 Allergy status to penicillin; Z88.2 Allergy status to sulfonamides; Z79.899 Other long term (current) drug therapy; Z23 Encounter for immunization
CPT/HCPCS: 73080; 73502; 90471; 90714